=== PATIENT | female | born 1960 | race African-American/Black ===

== ENCOUNTER 2016-11-26 09:52 | Emergency (ER) | payer MEDICARE, MEDICAID ==
--- NOTE | 2016-11-26 11:05 | ER Document Report ---
ED General - General Chief Complaint: Feet Swelling Stated Complaint: FOOT SWELLING Mode of Arrival: Medic Information source: Patient Notes: 56 yro ld female presents with complaints of right leg edema of over 2 week duration. pt notes symptoms are much better in the last 48 hours , notes swelling and pain have resolved greatly. denies any fevers or chills. denies any hx of diabetes or dvt TRAVEL OUTSIDE OF THE [place] IN LAST 30 DAYS: No - HPI Onset: Other Onset/Duration: Persistent, Better Quality of pain: No pain Severity: Mild Pain Level: Denies Associated symptoms: None Exacerbated by: Denies Relieved by: Denies Similar symptoms previously: No Recently seen / treated by doctor: No - Related Data Allergies/Adverse Reactions: No Known Allergies Allergy (Verified 11/19/14 13:15) Past Medical History - Social History Smoking Status: Never Smoker Cigarette use (# per day): No Chew tobacco use (# tins/day): No Smoking Education Provided: No Family History: Reviewed & Not Pertinent, DM Psychiatric Medical History: Reports: Hx Anxiety, Hx Bipolar Disorder, Hx Schizophrenia - Immunizations Hx Diphtheria, Pertussis, Tetanus Vaccination: Yes Review of Systems - Review of Systems Notes: REVIEW OF SYSTEMS: CONSTITUTIONAL : Denies fever, chills, or sweats. Denies recent illness. EENT: Denies eye, ear, throat, or mouth pain or symptoms. Denies nasal or sinus congestion or discharge. Denies throat, tongue, or mouth swelling or difficulty swallowing. CARDIOVASCULAR: Denies chest pain. Denies palpitations or racing or irregular heart beat. Denies ankle edema. RESPIRATORY: Denies cough, cold, or chest congestion. Denies shortness of breath, difficulty breathing, or wheezing. GASTROINTESTINAL: Denies abdominal pain or distention. Denies nausea, vomiting , or diarrhea. Denies blood in vomitus, stools, or per rectum. Denies black, tarry stools. Denies constipation. GENITOURINARY: chart notes urinary complaint, pt denies FEMALE GENITOURINARY: Denies vaginal bleeding, heavy or abnormal periods, irregular periods. Denies vaginal discharge or odor. MUSCULOSKELETAL: right lowere extremity edema SKIN: Denies rash, lesions or sores. HEMATOLOGIC : Denies easy bruising or bleeding. LYMPHATIC: Denies swollen, enlarged glands. NEUROLOGICAL: Denies confusion or altered mental status. Denies passing out or loss of consciousness. Denies dizziness or lightheadedness. Denies headache. Denies weakness or paralysis or loss of use of either side. Denies problems with gait or speech. Denies sensory loss, numbness, or tingling. Denies seizures. PSYCHIATRIC: Denies anxiety or stress. Denies depression, suicidal ideation, or homicidal ideation. ALL OTHER SYSTEMS REVIEWED AND NEGATIVE. Dictation was performed using to be voice recognition software PHYSICAL EXAMINATION: GENERAL: Well-appearing, well-nourished and in no acute distress. HEAD: Atraumatic, normocephalic. EYES: Pupils equal round and reactive to light, left eye diplopia ENT: Nares patent, oropharynx clear without exudates. Moist mucous membranes. NECK: Normal range of motion, supple without lymphadenopathy LUNGS: Breath sounds clear to auscultation bilaterally and equal. No wheezes rales or rhonchi. HEART: Regular rate and rhythm without murmurs ABDOMEN: Soft, nontender, nondistended abdomen. No guarding, no rebound. No masses appreciated. Female : deferred Musculoskeletal: right lower extremity edema +2 with weeping at the feet NEUROLOGICAL: Cranial nerves grossly intact. Normal speech, normal gait. Normal sensory, motor exams PSYCH: Normal mood, normal affect. SKIN: Warm, Dry, normal turgor, no rashes or lesions noted. Physical Exam - Vital signs Vitals: Temp Pulse BP Pulse Ox 97.6 F 72 134/84 H 98 11/26/16 10:31 11/26/16 10:31 11/26/16 10:31 11/26/16 10:31 Course - Re-evaluation Re-evalutation: 11/26/16 11:04 There is obvious concerns for DVT given the amount of edema, but foot is warm and probably cellulitic 11/26/16 12:01 Urinalysis notes no sign of infection, patient will be treated with antibiotics as Doppler After performing a Medical Screening Examination, I estimate there is LOW risk for OPEN FRACTURE, COMPARTMENT SYNDROME, TENDON RUPTURE, ACUTE NEUROVASCULAR INJURY, or RETAINED FOREIGN BODY, thus I consider the discharge disposition reasonable. Also, there is no evidence or peritonitis, sepsis, or toxicity. The patient and I have discussed the diagnosis and risks, and we agree with discharging home with close follow-up with the understanding that symptoms and presentations can change. We also discussed returning to the Emergency Department immediately if new or worsening symptoms occur. We have discussed the symptoms which are most concerning (e.g., changing or worsening pain, fever , numbness, weakness, cool or painful digits) that necessitate immediate return. - Vital Signs Vital signs: Temp Pulse Resp BP Pulse Ox 97.6 F 72 134/84 H 98 11/26/16 10:31 11/26/16 10:31 11/26/16 10:31 11/26/16 10:31 - Laboratory Result Diagrams: 11/26/16 10:50 11/26/16 10:50 Laboratory results interpreted by me: 11/26/16 10:50 RDW 15.5 H - Diagnostic Test Radiology reviewed: Image reviewed, Reports reviewed Discharge - Discharge Clinical Impression: Cellulitis of right foot, Edema of right lower extremity Condition: Stable Disposition: HOME, SELF-CARE Instructions: Cellulitis ([facility]) Prescriptions: Clindamycin HCl 300 mg PO Q6 #40 capsule Referrals: Wound Care [Provider Group] - Follow up in 3-5 days
[2016-11-26 11:13] LABS: ABSOLUTE BASOPHILS # (AUTO) 0.1 10^3/uL (0.0-0.2); ABSOLUTE EOSINOPHILS # (AUTO) 0.2 10^3/uL (0.0-0.6); ABSOLUTE LYMPHOCYTES (AUTO) 3.8 10^3/uL (0.5-4.7); ABSOLUTE MONOCYTES (AUTO) 1.2 10^3/uL (0.1-1.4); ABSOLUTE NEUT (AUTO) 3.8 10^3/uL (1.7-8.2); BASOPHILS % (AUTO) 0.6 % (0-2); EOSINOPHILS % (AUTO) 2.7 % (0-6); HEMATOCRIT 37.9 % (36.0-47.0); HEMOGLOBIN 12.3 g/dL (12.0-15.5); LYMPHOCYTES % (AUTO) 41.8 % (13-45); MEAN CORPUSCULAR HGB CONC 32.3 g/dL (32.0-36.0); MEAN CORPUSCULAR VOLUME 90 fl (80-97); MONOCYTES % (AUTO) 12.8 % (3-13); RED BLOOD COUNT 4.22 10^6/uL (3.72-5.28); RED CELL DISTRIBUTION WIDTH 15.5 % (11.5-14.0); SEGMENTED NEUTROPHILS % (AUTO) 42.1 % (42-78); WHITE BLOOD COUNT 9.1 10^3/uL (4.0-10.5)
[2016-11-26] MEDS ORDERED: CLINDAMYCIN HCL 150 MG CAPSULE PO ONE (11:21)
[2016-11-26 11:28] LABS: ALANINE AMINOTRANSFERASE 19 U/L (9-52); ALBUMIN 3.6 g/dL (3.5-5.0); ALKALINE PHOSPHATASE 72 U/L (38-126); ANION GAP 10 (5-19); ASPARTATE AMINO TRANSFERASE 20 U/L (14-36); BILIRUBIN,TOTAL 0.4 mg/dL (0.2-1.3); BLOOD UREA NITROGEN 14 mg/dL (7-20); CALCIUM 9.4 mg/dL (8.4-10.2); CARBON DIOXIDE 28 mmol/L (22-30); CHLORIDE 105 mmol/L (98-107); CREATININE RESULT 0.65 mg/dL (0.52-1.25); GLUCOSE 79 mg/dL (75-110); POTASSIUM 4.8 mmol/L (3.6-5.0); SODIUM 142.5 mmol/L (137-145); TOTAL PROTEIN 7.5 g/dL (6.3-8.2)
[2016-11-26 11:44] LABS: APPEARANCE,URINE CLEAR; BILIRUBIN,URINE NEGATIVE (NEGATIVE); GLUCOSE, URINE NEGATIVE (NEGATIVE); KETONES,URINE NEGATIVE (NEGATIVE); LEUKOCYTE ESTERASE,URINE NEGATIVE (NEGATIVE); NITRITE,URINE NEGATIVE (NEGATIVE); PROTEIN,URINE NEGATIVE (NEGATIVE); URINE SPECIFIC GRAVITY 1.013; UROBILINOGEN,URINE NEGATIVE mg/dL (<2.0)
[2016-11-26 12:59] VITALS: BP 141/82
== END 2016-11-26 12:32 | disposition home or self-care (01) ==
LOC: ER 09:52
DX: L03.115 Cellulitis of right lower limb (principal); M79.89 Other specified soft tissue disorders
CPT/HCPCS: 99284; 36415; 85025; 80053; 81001; 93971; A9270

== ENCOUNTER 2017-07-07 09:02 | Emergency (ER) | payer MEDICARE, MEDICAID ==
[2017-07-07] MEDS ORDERED: CLINDAMYCIN 600 MG/D5W RTU 600 MG/50 ML RTUPB IV ONE (09:27)
[2017-07-07 09:45] LABS: ABSOLUTE EOSINOPHILS # (AUTO) 0.2 10^3/uL (0.0-0.6); ABSOLUTE LYMPHOCYTES (AUTO) 2.8 10^3/uL (0.5-4.7); ABSOLUTE MONOCYTES (AUTO) 1.2 10^3/uL (0.1-1.4); ABSOLUTE NEUT (AUTO) 5.6 10^3/uL (1.7-8.2); BASOPHILS % (AUTO) 0.4 % (0-2); EOSINOPHILS % (AUTO) 2.2 % (0-6); HEMATOCRIT 38.3 % (36.0-47.0); HEMOGLOBIN 12.8 g/dL (12.0-15.5); HGB HCT DIFFERENCE 0.1; LYMPHOCYTES % (AUTO) 28.5 % (13-45); MEAN CORPUSCULAR HEMOGLOBIN 29.9 pg (27.0-33.4); MEAN CORPUSCULAR HGB CONC 33.4 g/dL (32.0-36.0); MEAN CORPUSCULAR VOLUME 90 fl (80-97); MONOCYTES % (AUTO) 11.8 % (3-13); RED BLOOD COUNT 4.28 10^6/uL (3.72-5.28); RED CELL DISTRIBUTION WIDTH 15.1 % (11.5-14.0); SEGMENTED NEUTROPHILS % (AUTO) 57.1 % (42-78); WHITE BLOOD COUNT 9.8 10^3/uL (4.0-10.5)
[2017-07-07 10:05] LABS: ALANINE AMINOTRANSFERASE 21 U/L (9-52); ALBUMIN 3.9 g/dL (3.5-5.0); ALKALINE PHOSPHATASE 83 U/L (38-126); ANION GAP 12 (5-19); ASPARTATE AMINO TRANSFERASE 23 U/L (14-36); BILIRUBIN,DIRECT 0.6 mg/dL (0.0-0.4); BILIRUBIN,TOTAL 0.6 mg/dL (0.2-1.3); BLOOD UREA NITROGEN 10 mg/dL (7-20); CALCIUM 9.7 mg/dL (8.4-10.2); CARBON DIOXIDE 28 mmol/L (22-30); CHLORIDE 102 mmol/L (98-107); CREATININE RESULT 0.66 mg/dL (0.52-1.25); GLUCOSE 153 mg/dL (75-110); POTASSIUM 3.8 mmol/L (3.6-5.0); SODIUM 141.6 mmol/L (137-145); TOTAL PROTEIN 7.9 g/dL (6.3-8.2)
--- NOTE | 2017-07-07 10:32 | ER Document Report ---
ED Skin Rash/Insect Bite/Abscs - General Chief Complaint: Skin Problem Stated Complaint: FOOT PAIN Time Seen by Provider: 07/07/17 09:10 Mode of Arrival: Medic Information source: Patient, Outside Facility Records Notes: Pt is a 57 year old bipolar schizophrenic who presents to the ER today for 3 days of right lower leg and foot swelling, redness, drainage from foot and pain. She states she is walking on it just fine but it hurts to touch. She has a history of cellulitis of both lower extremities, but no diabetes. She denies injury or CHF. TRAVEL OUTSIDE OF THE [place] IN LAST 30 DAYS: No - Related Data Allergies/Adverse Reactions: No Known Allergies Allergy (Verified 11/19/14 13:15) Past Medical History - General Information source: Patient - Social History Smoking Status: Unknown if Ever Smoked Frequency of alcohol use: None Drug Abuse: None Family History: Reviewed & Not Pertinent, DM Psychiatric Medical History: Reports: Hx Anxiety, Hx Bipolar Disorder, Hx Schizophrenia - Immunizations Hx Diphtheria, Pertussis, Tetanus Vaccination: Yes Review of Systems - Review of Systems Constitutional: No symptoms reported EENT: No symptoms reported Cardiovascular: No symptoms reported Respiratory: No symptoms reported Gastrointestinal: No symptoms reported Genitourinary: No symptoms reported Female Genitourinary: No symptoms reported Musculoskeletal: No symptoms reported Skin: See HPI Hematologic/Lymphatic: No symptoms reported Neurological/Psychological: No symptoms reported Physical Exam - Vital signs Vitals: Temp Pulse Resp BP Pulse Ox 98.1 F 97 16 136/86 H 100 07/07/17 09:17 07/07/17 09:17 07/07/17 09:17 07/07/17 09:17 07/07/17 09:17 - Notes Notes: PHYSICAL EXAMINATION: GENERAL: Chronically ill-appearing, but in no acute distress. HEAD: Atraumatic, normocephalic. EYES: Pupils equal round and reactive to light, extraocular movements intact, sclera anicteric, conjunctiva are normal. NECK: Normal range of motion, supple without lymphadenopathy LUNGS: CTAB and equal. No wheezes rales or rhonchi. HEART: Regular rate and rhythm without murmurs EXTREMITIES: Normal range of motion, No cyanosis. NEUROLOGICAL: Cranial nerves grossly intact. Normal sensory/motor exams. PSYCH: Normal mood, normal affect. SKIN: Warm, Dry, normal turgor, erythema and edema to right lower extremity, tender to palpation, 1+ pitting, weeping from right foot in between toes Course - Re-evaluation Re-evalutation: 07/07/17 11:13 WBC normal here, pt afebrile, normal vital signs and unremarkable labwork. Pt has been treated in the past with oral clindamycin for exact same thing and states it "usually works." Will send her home with clindamycin this time and have recheck in 3 days. - Vital Signs Vital signs: Temp Pulse Resp BP Pulse Ox 97.5 F 76 16 114/69 96 07/07/17 10:45 07/07/17 10:45 07/07/17 10:45 07/07/17 10:45 07/07/17 10:45 - Laboratory Result Diagrams: 07/07/17 09:30 07/07/17 09:30 Laboratory results interpreted by me: 07/07/17 07/07/17 09:30 09:30 RDW 15.1 H Glucose 153 H Direct Bilirubin 0.6 H Discharge - Discharge Clinical Impression: Cellulitis of right foot, Cellulitis of right leg Condition: Stable Disposition: HOME-SNF (ED ONLY) Additional Instructions: come back in 3 days to have cellulitis rechecked. Return immediately for any new or worsening symptoms. Follow up with primary care provider, call tomorrow to make followup appointment. Prescriptions: Clindamycin HCl 300 mg PO TID #30 capsule
[2017-07-07 10:46] VITALS: BP 114/69
== END 2017-07-07 12:00 ==
LOC: ER 09:02
DX: L03.115 Cellulitis of right lower limb (principal)
CPT/HCPCS: 36415; 80053; 85025; 87040; 96365; 99284

== ENCOUNTER 2017-07-12 15:14 | Emergency (ER) | payer MEDICARE, MEDICAID ==
--- NOTE | 2017-07-12 15:49 | ER Document Report ---
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 Patient was sent in by the [employer] [facility] physician for IV antibiotics and possible failure of outpatient therapy of antibiotics. She was seen here on Friday and then reevaluate again yesterday in the ED by the same provider who no significant improvement, the patient herself states that it has improved tremendously and that she does not know why they sent her in. She denies any fevers or chills denies any pain TRAVEL OUTSIDE OF THE [place] IN LAST 30 DAYS: No - HPI Onset: Last week Onset/Duration: Persistent, Better Quality of pain: No pain Severity: Moderate Pain Level: Denies Associated symptoms: Other Exacerbated by: Denies Relieved by: Denies Similar symptoms previously: Yes Recently seen / treated by doctor: Yes - Related Data Allergies/Adverse Reactions: No Known Allergies Allergy (Verified 07/11/17 16:29) Past Medical History - Social History Smoking Status: Never Smoker Cigarette use (# per day): No Chew tobacco use (# tins/day): No Smoking Education Provided: No Frequency of alcohol use: None Drug Abuse: None Family History: Reviewed & Not Pertinent, DM Renal/ Medical History: Denies: Hx Peritoneal Dialysis Psychiatric Medical History: Reports: Hx Anxiety, Hx Bipolar Disorder, Hx Schizophrenia Surgical Hx: Negative - Immunizations Hx Diphtheria, Pertussis, Tetanus Vaccination: Yes Review of Systems - Review of Systems Notes: REVIEW OF SYSTEMS: CONSTITUTIONAL : Denies fever, chills, or sweats. Denies recent illness. EENT: Denies eye, ear, throat, or mouth pain or symptoms. Denies nasal or sinus congestion or discharge. Denies throat, tongue, or mouth swelling or difficulty swallowing. CARDIOVASCULAR: right lower extremity edema RESPIRATORY: Denies cough, cold, or chest congestion. Denies shortness of breath, difficulty breathing, or wheezing. GASTROINTESTINAL: Denies abdominal pain or distention. Denies nausea, vomiting , or diarrhea. Denies blood in vomitus, stools, or per rectum. Denies black, tarry stools. Denies constipation. GENITOURINARY: Denies difficulty urinating, painful urination, burning, frequency, blood in urine, or discharge. FEMALE GENITOURINARY: Denies vaginal bleeding, heavy or abnormal periods, irregular periods. Denies vaginal discharge or odor. MUSCULOSKELETAL: Denies back or neck pain or stiffness. Denies joint pain or swelling. SKIN: skin sloughing HEMATOLOGIC : Denies easy bruising or bleeding. LYMPHATIC: Denies swollen, enlarged glands. NEUROLOGICAL: Denies confusion or altered mental status. Denies passing out or loss of consciousness. Denies dizziness or lightheadedness. Denies headache. Denies weakness or paralysis or loss of use of either side. Denies problems with gait or speech. Denies sensory loss, numbness, or tingling. Denies seizures. PSYCHIATRIC: Denies anxiety or stress. Denies depression, suicidal ideation, or homicidal ideation. ALL OTHER SYSTEMS REVIEWED AND NEGATIVE. PHYSICAL EXAMINATION: GENERAL: Well-appearing, well-nourished and in no acute distress. HEAD: Atraumatic, normocephalic. EYES: Pupils equal round and reactive to light, extraocular movements intact, conjunctiva are normal. ENT: Nares patent, oropharynx clear without exudates. Moist mucous membranes. NECK: Normal range of motion, supple without lymphadenopathy LUNGS: Breath sounds clear to auscultation bilaterally and equal. No wheezes rales or rhonchi. HEART: Regular rate and rhythm without murmurs ABDOMEN: Soft, nontender, nondistended abdomen. No guarding, no rebound. No masses appreciated. Female : deferred Musculoskeletal: Normal range of motion, no pitting or edema. No cyanosis. NEUROLOGICAL: Cranial nerves grossly intact. Normal speech, normal gait. Normal sensory, motor exams PSYCH: Normal mood, normal affect. SKIN: sloughing of skin between 1st and 2nd digits +2 pitting edema of the right ankle to foot Dictation was performed using [employer] voice recognition software Physical Exam - Vital signs Vitals: Temp Pulse Resp BP Pulse Ox 97.8 F 96 18 124/80 96 07/12/17 15:18 07/12/17 15:18 07/12/17 15:18 07/12/17 15:18 07/12/17 15:18 Course - Re-evaluation Re-evalutation: 07/12/17 16:05 area was looked at by the nurse that saw patient yesterday and notes it looks similar 07/12/17 20:29 CBC notes no significant infectious process, given that the nurse agrees with the patient that the symptoms have improved significantly and she is afebrile with no white count I do not believe admission is appropriate at this time, I did give her a dose of IV antibiotics in the emergency department will discharge her back to care facility for further evaluation and care Patient is alert oriented 4 is very specific regarding her previous presentations to the ED After performing a Medical Screening Examination, I estimate there is LOW risk for OPEN FRACTURE, COMPARTMENT SYNDROME, TENDON RUPTURE, ACUTE NEUROVASCULAR INJURY, or RETAINED FOREIGN BODY, thus I consider the discharge disposition reasonable. Also, there is no evidence or peritonitis, sepsis, or toxicity. I have reevaluated this patient multiple times and no significant life threatening changes are noted. The patient and I have discussed the diagnosis and risks, and we agree with discharging home with close follow-up with the understanding that symptoms and presentations can change. We also discussed returning to the Emergency Department immediately if new or worsening symptoms occur. We have discussed the symptoms which are most concerning (e.g., changing or worsening pain, fever, numbness, weakness, cool or painful digits) that necessitate immediate return. - Vital Signs Vital signs: Temp Pulse Resp BP Pulse Ox 98 F 88 16 135/81 H 98 07/12/17 19:59 07/12/17 19:59 07/12/17 19:59 07/12/17 19:59 07/12/17 19:59 - Laboratory Result Diagrams: 07/12/17 17:18 07/12/17 17:18 Laboratory results interpreted by me: 07/12/17 17:18 RDW 15.3 H Discharge - Discharge Clinical Impression: Cellulitis of left foot Foot ulcer, left Qualifiers: Non-pressure ulcer stage: limited to breakdown of skin Qualified Code(s): L97.521 - Non-pressure chronic ulcer of other part of left foot limited to breakdown of skin Condition: Stable Disposition: HOME, SELF-CARE Additional Instructions: Please continue plan provided to you yesterday return immediately if there is any worsening symptoms or any other concerns Referrals: LUZ DE LUNA MD [Primary Care Provider] - Follow up tomorrow
[2017-07-12] MEDS ORDERED: CLINDAMYCIN 300 MG/D5W RTU 300 MG/50 ML RTUPB IV ONE (16:01)
[2017-07-12 17:42] LABS: ABSOLUTE BASOPHILS # (AUTO) 0.1 10^3/uL (0.0-0.2); ABSOLUTE EOSINOPHILS # (AUTO) 0.2 10^3/uL (0.0-0.6); ABSOLUTE LYMPHOCYTES (AUTO) 3.5 10^3/uL (0.5-4.7); ABSOLUTE MONOCYTES (AUTO) 1.1 10^3/uL (0.1-1.4); ABSOLUTE NEUT (AUTO) 5.7 10^3/uL (1.7-8.2); BASOPHILS % (AUTO) 0.7 % (0-2); EOSINOPHILS % (AUTO) 1.6 % (0-6); HEMATOCRIT 41.6 % (36.0-47.0); HEMOGLOBIN 13.7 g/dL (12.0-15.5); HGB HCT DIFFERENCE -0.5; MEAN CORPUSCULAR HEMOGLOBIN 29.8 pg (27.0-33.4); MEAN CORPUSCULAR HGB CONC 32.9 g/dL (32.0-36.0); MEAN CORPUSCULAR VOLUME 91 fl (80-97); MONOCYTES % (AUTO) 10.5 % (3-13); RED CELL DISTRIBUTION WIDTH 15.3 % (11.5-14.0); SEGMENTED NEUTROPHILS % (AUTO) 54.2 % (42-78); WHITE BLOOD COUNT 10.5 10^3/uL (4.0-10.5)
[2017-07-12 20:01] VITALS: BP 135/81
== END 2017-07-12 20:02 | disposition home or self-care (01) ==
LOC: ER 15:14
DX: L03.116 Cellulitis of left lower limb (principal); L97.521 Non-pressure chronic ulcer of other part of left foot limited to breakdown of skin
CPT/HCPCS: 99284; 96365; 36415; 87040; 85025; J3490

== ENCOUNTER 2017-07-16 16:54 | Emergency (ER) | payer MEDICARE, MEDICAID ==
[2017-07-16] MEDS ORDERED: VANCOMYCIN HCL INJ 1000 MG VIAL IV ONE (17:23)
--- NOTE | 2017-07-16 17:24 | ER Document Report ---
ED Medical Screen (RME) - General Chief Complaint: Wound Recheck Stated Complaint: CELLULITIS RIGHT LEG Time Seen by Provider: 07/16/17 17:23 Notes: Patient presents from [facility]. She states that she has some right leg pain from a chronic wound. She states she has been undergoing oral antibiotic therapy and has an appointment next week at wound care. TRAVEL OUTSIDE OF THE [place] IN LAST 30 DAYS: No - Related Data Allergies/Adverse Reactions: No Known Allergies Allergy (Verified 07/11/17 16:29) Past Medical History - Social History Frequency of alcohol use: None Drug Abuse: None Renal/ Medical History: Denies: Hx Peritoneal Dialysis Psychiatric Medical History: Reports: Hx Anxiety, Hx Bipolar Disorder, Hx Schizophrenia - Immunizations Hx Diphtheria, Pertussis, Tetanus Vaccination: Yes Physical Exam - Vital signs Vitals: Temp Pulse Resp BP Pulse Ox 97.5 F 87 18 112/60 100 07/16/17 17:10 07/16/17 17:10 07/16/17 17:10 07/16/17 17:10 07/16/17 17:10 Course - Vital Signs Vital signs: Temp Pulse Resp BP Pulse Ox 97.5 F 87 18 112/60 100 07/16/17 17:10 07/16/17 17:10 07/16/17 17:10 07/16/17 17:10 07/16/17 17:10
[2017-07-16 18:25] LABS: ABSOLUTE EOSINOPHILS # (AUTO) 0.3 10^3/uL (0.0-0.6); ABSOLUTE MONOCYTES (AUTO) 0.9 10^3/uL (0.1-1.4); ABSOLUTE NEUT (AUTO) 5.5 10^3/uL (1.7-8.2); BASOPHILS % (AUTO) 0.3 % (0-2); EOSINOPHILS % (AUTO) 2.6 % (0-6); HEMATOCRIT 39.9 % (36.0-47.0); HEMOGLOBIN 13.1 g/dL (12.0-15.5); HGB HCT DIFFERENCE -0.6; LYMPHOCYTES % (AUTO) 31.5 % (13-45); MEAN CORPUSCULAR HEMOGLOBIN 29.2 pg (27.0-33.4); MEAN CORPUSCULAR HGB CONC 32.7 g/dL (32.0-36.0); MEAN CORPUSCULAR VOLUME 90 fl (80-97); MONOCYTES % (AUTO) 8.9 % (3-13); RED BLOOD COUNT 4.46 10^6/uL (3.72-5.28); RED CELL DISTRIBUTION WIDTH 15.2 % (11.5-14.0); SEGMENTED NEUTROPHILS % (AUTO) 56.7 % (42-78); WHITE BLOOD COUNT 9.7 10^3/uL (4.0-10.5)
[2017-07-16 18:39] LABS: ALANINE AMINOTRANSFERASE 26 U/L (9-52); ALKALINE PHOSPHATASE 82 U/L (38-126); ANION GAP 12 (5-19); ASPARTATE AMINO TRANSFERASE 21 U/L (14-36); BILIRUBIN,DIRECT 0.4 mg/dL (0.0-0.4); BILIRUBIN,TOTAL 0.4 mg/dL (0.2-1.3); BLOOD UREA NITROGEN 11 mg/dL (7-20); CALCIUM 9.8 mg/dL (8.4-10.2); CARBON DIOXIDE 29 mmol/L (22-30); CHLORIDE 103 mmol/L (98-107); GLUCOSE 106 mg/dL (75-110); POTASSIUM 4.1 mmol/L (3.6-5.0); SODIUM 143.8 mmol/L (137-145); TOTAL PROTEIN 8.1 g/dL (6.3-8.2)
--- NOTE | 2017-07-16 18:57 | ER Document Report ---
ED General - General Chief Complaint: Wound Recheck Stated Complaint: CELLULITIS RIGHT LEG Time Seen by Provider: 07/16/17 17:23 Notes: Patient is a 57-year-old male currently lives in [facility], has a history of bipolar disorder, schizophrenia, who presents with right lower extremity swelling, rash and pain. She has been seen twice previously in this emergency department for this concern and was placed on clindamycin. She states that this has improved her rash and pain but apparently the facility was concerned that it has actually worsened. Is adamant that it is improved and denies any pain to the area at this time other states earlier it was a dull, constant burning pain. She states that the pain can still sometimes be triggered when she walks. She does not take anything to control the pain. She denies any fever or constitutional symptoms. TRAVEL OUTSIDE OF THE [place] IN LAST 30 DAYS: No - Related Data Allergies/Adverse Reactions: No Known Allergies Allergy (Verified 07/11/17 16:29) Past Medical History - General Information source: Patient - Social History Smoking Status: Current Every Day Smoker Frequency of alcohol use: None Drug Abuse: None Lives with: Retirement Family History: Reviewed & Not Pertinent, DM Renal/ Medical History: Denies: Hx Peritoneal Dialysis Psychiatric Medical History: Reports: Hx Anxiety, Hx Bipolar Disorder, Hx Schizophrenia - Immunizations Hx Diphtheria, Pertussis, Tetanus Vaccination: Yes Review of Systems - Review of Systems Notes: Constitutional: Negative for fever. HENT: Negative for sore throat. Eyes: Negative for visual changes. Cardiovascular: Negative for chest pain. Respiratory: Negative for shortness of breath. Gastrointestinal: Negative for abdominal pain, vomiting or diarrhea. Genitourinary: Negative for dysuria. Musculoskeletal: Negative for back pain. Skin: Positive for rash. Neurological: Negative for headaches, weakness or numbness. 10 point ROS negative except as marked above and in HPI. Physical Exam - Vital signs Vitals: Temp Pulse Resp BP Pulse Ox 97.5 F 87 18 112/60 100 07/16/17 17:10 07/16/17 17:10 07/16/17 17:10 07/16/17 17:10 07/16/17 17:10 Interpretation: Normal Notes: PHYSICAL EXAMINATION: GENERAL: Well-appearing, well-nourished and in no acute distress. HEAD: Atraumatic, normocephalic. EYES: Pupils equal round and reactive to light, extraocular movements intact, sclera anicteric, conjunctiva are normal. ENT: nares patent, oropharynx clear without exudates. Moist mucous membranes. NECK: Normal range of motion, supple without lymphadenopathy LUNGS: Breath sounds clear to auscultation bilaterally and equal. No wheezes rales or rhonchi. HEART: Regular rate and rhythm without murmurs ABDOMEN: Soft, nontender, normoactive bowel sounds. No guarding, no rebound. No masses appreciated. EXTREMITIES: 2+ pitting edema in the in the right lower extremity. There is weeping edema to the area. There are multiple areas of soft tissue avulsion and a small amount of purulent drainage over these areas over the distal tibial surface and the dorsum of the right foot NEUROLOGICAL: No focal neurological deficits. Moves all extremities spontaneously and on command. PSYCH: Normal mood, normal affect. SKIN: Warm, Dry, normal turgor, no rashes or lesions noted. Course - Re-evaluation Re-evalutation: 07/16/17 18:58 Patient presents with right lower extremity edema and weeping. She has multiple areas of skin avulsion concerning for a possible sinusitis with associated purulent component and she is only on clindamycin at this time which is now provide a quite quite average for immediate MRSA. Alternative concerns do include DVT with associated edema weeping as the etiology of her presentation. Will obtain a venous ultrasound and if this is normal plan for discharge home with broadening of her antibiotics. 07/16/17 21:10 Venous Doppler is normal. Apparently the referring physician was concerned about a possible gas gangrene. There is absolutely no evidence of this on exam and patient is extremely well in appearance with [place] no vital sign abnormalities or leukocytosis. She herself states that the area actually appears much improved since she was started on antibiotics. However, given referring physicians concern I will broaden her antibiotics to TMP-SMX and Keflex and discontinue clindamycin. - Vital Signs Vital signs: Temp Pulse Resp BP Pulse Ox 97.4 F 75 17 140/79 H 100 07/16/17 22:24 07/16/17 22:24 07/16/17 22:24 07/16/17 22:24 07/16/17 22:24 - Laboratory Result Diagrams: 07/16/17 18:03 07/16/17 18:03 Laboratory results interpreted by me: 07/16/17 18:03 RDW 15.2 H Discharge - Discharge Clinical Impression: Leg edema, right, Cellulitis of leg, right Condition: Good Disposition: HOME, SELF-CARE Additional Instructions: The patient's laboratories and vitals are normal. She does not require hospitalization. Her venous ultrasound is normal does not show any evidence of a clot in the leg. Her antibiotics have been changed from clindamycin to TMP- SMX and cephalexin which she will take daily for the next 10 days. If she develops a fever, becomes lethargic, has vital sign abnormalities or any additional concerns you may refer her back to the emergency department. Prescriptions: Cephalexin Monohydrate [Keflex 500 mg Capsule] 500 mg PO QID #40 capsule Sulfamethoxazole/Trimethoprim [Bactrim Ds Tablet] 1 each PO BID #20 tablet Referrals: LUZ DE LUNA MD [Primary Care Provider] - Follow up as needed
--- NOTE | 2017-07-16 21:35 | RADIOLOGY REPORT (SQ) ---
EXAM DESCRIPTION: VENOUS UNILATERAL LOWER COMPLETED DATE/TIME: 07/16/2017 9:25 pm REASON FOR STUDY: eval rle edema, dvt COMPARISON: 11/26/2016 TECHNIQUE: Dynamic and static mcnally scale and color images acquired of the right leg venous system. S elected spectral images acquired with additional compression and augmentation maneuvers. The contrala teral common femoral vein and saphenofemoral junction were also imaged. Images stored on PACS. LIMITATIONS: None. FINDINGS: COMMON FEMORAL: Normal phasicity, compression and augmentation. No visualized echogenic ma terial on mcnally scale. No defects on color images. FEMORAL: Normal compression and augmentation. No visualized echogenic material on mcnally scale. No defe cts on color images. POPLITEAL: Normal compression, augmentation. No visualized echogenic material on mcnally scale. No defec ts on color images. CALF VESSELS: Normal compression, augmentation. No visualized echogenic material on mcnally scale. No de fects on color images. GSV and SSV: Normal compression, augmentation. No visualized echogenic material on mcnally scale. No def ects on color images. ANY DEEP VENOUS INSUFFICIENCY: Not evaluated. ANY EVIDENCE OF POPLITEAL CYST: No. OTHER: No other significant finding. CONTRALATERAL COMMON FEMORAL VEIN AND SAPHENOFEMORAL JUNCTION: Normal phasicity, compression and augmentation. No visualized echogenic material on mcnally scale. No de fects on color images. IMPRESSION: NO EVIDENCE DVT OR SVT IN THE RIGHT LEG. TECHNICAL DOCUMENTATION: JOB ID: [id number] [employer]- All Rights Reserved
[2017-07-16 22:33] VITALS: BP 140/79
== END 2017-07-16 23:35 | disposition home or self-care (01) ==
LOC: ER 16:54
DX: R60.0 Localized edema (principal); L03.115 Cellulitis of right lower limb; F17.200 Nicotine dependence, unspecified, uncomplicated
CPT/HCPCS: 36415; 80053; 85025; 93971; 99282

== ENCOUNTER → 2017-07-29 | Outpatient (CLI) | payer MEDICARE, MEDICAID ==
--- NOTE | 2017-07-29 16:40 | XCELERA REPORT ---
[address] [address] Lower Extremity Arterial Evaluation Name: JACK DILLARD Age: 57 yrs Gender: Female : 1960 Patient Status: Outpatient Patient Location: Study Date: 07/29/2017 02:48 PM Procedure: A color flow and duplex scan of the lower extremity arteries was performed bilaterally with velocity and waveform anaylsis. Ankle brachial indicies performed. Reason For Study: ULCER Ordering Physician: MICHAEL STEVENS Performed By: Jamila Gross Measurements and Calculations Right Left LEGAL FILE CLERK PSV 162.6 115.7 cm/sec Prox PFA PSV 85.6 -71.6 cm/sec Prox SFA PSV 153.4 116.9 cm/sec Mid SFA PSV -162.2 -118.8 cm/sec Dist SFA PSV -132.6 -85.1 cm/sec Prox Pop A PSV 140.2 78.6 cm/sec Dist ARLETTE PSV 90.8 66.0 cm/sec Dist EMS INSTRUCTOR PSV 116.3 96.5 cm/sec Andrew Pedis PSV 114.9 79.8 cm/sec Right Side Arterial Evaluation Normal velocity and triphasic waveforms noted from the Common Femoral artery to the infregeniculate vessels. 0 % stenosis noted . Ankle Brachial index is 1.17. Left Side Arterial Evaluation Normal velocity and triphasic waveforms noted from the Common Femoral artery to the infregeniculate vessels. 0 % stenosis noted . Ankle Brachial index is 1.15. Interpretation Summary No hemodynamically significant lesions in the bilateral lower extremities, on duplex imaging, at rest. : MICHAEL STEVENS > Reji Carrillo
== END ==
LOC: SP 14:22
PROVIDERS: ATTEND Nurse Practitioner Family
DX: L97.512 Non-pressure chronic ulcer of other part of right foot with fat layer exposed (principal)
CPT/HCPCS: 93925

== ENCOUNTER 2017-08-09 13:53 | Emergency (ER) | payer MEDICARE, MEDICAID ==
--- NOTE | 2017-08-09 14:12 | ER Document Report ---
ED Medical Screen (RME) - General Chief Complaint: Skin Problem Stated Complaint: LEFT FOOT PAIN Time Seen by Provider: 08/09/17 14:03 Mode of Arrival: Wheelchair Information source: Patient TRAVEL OUTSIDE OF THE [place] IN LAST 30 DAYS: No - HPI Patient complains to provider of: Right foot infection Notes: 08/09/17 14:10 Patient is a 57-year-old female with a history of schizophrenia who resides at [facility], she presents to the emergency room today complaining of worsening infection to the right foot, patient states that she was told the foot has cellulitis, however she believes that when she sleeps at night serpents come in and bite her foot and inject venom into to it, because that is with the spirit told her, this spirit also told her that she should unwrap the foot and expose it to sun yesterday which she did, and she reports that it continues to have drainage which is odorous, apparently home health nurse has been following her and evaluated the foot today stating that it was much worse - Related Data Allergies/Adverse Reactions: No Known Allergies Allergy (Verified 07/11/17 16:29) Past Medical History Renal/ Medical History: Denies: Hx Peritoneal Dialysis Psychiatric Medical History: Reports: Hx Anxiety, Hx Bipolar Disorder, Hx Schizophrenia - Immunizations Hx Diphtheria, Pertussis, Tetanus Vaccination: Yes Physical Exam - Vital signs Vitals: Temp Pulse Resp BP Pulse Ox 97.8 F 82 16 113/85 98 08/09/17 13:58 08/09/17 13:58 08/09/17 13:58 08/09/17 13:58 08/09/17 13:58 Course - Vital Signs Vital signs: Temp Pulse Resp BP Pulse Ox 97.8 F 82 16 113/85 98 08/09/17 13:58 08/09/17 13:58 08/09/17 13:58 08/09/17 13:58 08/09/17 13:58
[2017-08-09 15:14] LABS: ABSOLUTE EOSINOPHILS # (AUTO) 0.5 10^3/uL (0.0-0.6); ABSOLUTE LYMPHOCYTES (AUTO) 3.1 10^3/uL (0.5-4.7); ABSOLUTE MONOCYTES (AUTO) 0.9 10^3/uL (0.1-1.4); ABSOLUTE NEUT (AUTO) 3.9 10^3/uL (1.7-8.2); BASOPHILS % (AUTO) 0.4 % (0-2); HEMATOCRIT 37.3 % (36.0-47.0); HEMOGLOBIN 12.5 g/dL (12.0-15.5); HGB HCT DIFFERENCE 0.2; LYMPHOCYTES % (AUTO) 36.8 % (13-45); MEAN CORPUSCULAR HEMOGLOBIN 29.9 pg (27.0-33.4); MEAN CORPUSCULAR HGB CONC 33.6 g/dL (32.0-36.0); MEAN CORPUSCULAR VOLUME 89 fl (80-97); RED BLOOD COUNT 4.18 10^6/uL (3.72-5.28); RED CELL DISTRIBUTION WIDTH 15.9 % (11.5-14.0); SEGMENTED NEUTROPHILS % (AUTO) 45.8 % (42-78); WHITE BLOOD COUNT 8.4 10^3/uL (4.0-10.5)
[2017-08-09 15:23] LABS: ALANINE AMINOTRANSFERASE 19 U/L (9-52); ALBUMIN 4.1 g/dL (3.5-5.0); ALKALINE PHOSPHATASE 82 U/L (38-126); ANION GAP 9 (5-19); ASPARTATE AMINO TRANSFERASE 23 U/L (14-36); BILIRUBIN,DIRECT 0.4 mg/dL (0.0-0.4); BILIRUBIN,TOTAL 0.4 mg/dL (0.2-1.3); BLOOD UREA NITROGEN 13 mg/dL (7-20); CALCIUM 9.9 mg/dL (8.4-10.2); CARBON DIOXIDE 30 mmol/L (22-30); CHLORIDE 106 mmol/L (98-107); CREATININE RESULT 0.71 mg/dL (0.52-1.25); GLUCOSE 96 mg/dL (75-110); POTASSIUM 4.5 mmol/L (3.6-5.0); SODIUM 145.2 mmol/L (137-145); TOTAL PROTEIN 8.4 g/dL (6.3-8.2)
--- NOTE | 2017-08-09 15:24 | RADIOLOGY REPORT (SQ) ---
EXAM DESCRIPTION: FOOT RIGHT COMPLETE COMPLETED DATE/TIME: 08/09/2017 3:14 pm REASON FOR STUDY: infection COMPARISON: 06/04/2011 NUMBER OF VIEWS: Three views. TECHNIQUE: AP, lateral and oblique radiographic images acquired of the right foot. LIMITATIONS: None. FINDINGS: MINERALIZATION: Normal. BONES: No acute fracture or dislocation. No worrisome bone lesions. JOINTS: No effusions. SOFT TISSUES: Diffuse swelling. No foreign body. OTHER: No other significant finding. IMPRESSION: No evidence of osteomyelitis. TECHNICAL DOCUMENTATION: JOB ID: [id number] [employer]- All Rights Reserved
--- NOTE | 2017-08-09 15:40 | ER Document Report ---
ED General - General Chief Complaint: Skin Problem Stated Complaint: LEFT FOOT PAIN Time Seen by Provider: 08/09/17 14:03 Mode of Arrival: Wheelchair Information source: Patient Notes: Patient presents to emergency department with complaints of right foot cellulitis. Patient reports she has had this on and off for a while. Her wound care nurse saw her today and thought she needed recently again. She reports this was a new nurse. She reports the foot looks better. She denies pain. She reports snakes have been biting her foot at night so that is why her foot has been bothering her. Denies f/n/v/d. Reports next wound care appointment is Friday. TRAVEL OUTSIDE OF THE [place] IN LAST 30 DAYS: No - HPI Onset: Other Onset/Duration: Better Quality of pain: No pain Severity: None Pain Level: Denies Associated symptoms: None Exacerbated by: Denies Relieved by: Denies Similar symptoms previously: Yes Recently seen / treated by doctor: Yes - Related Data Allergies/Adverse Reactions: No Known Allergies Allergy (Verified 07/11/17 16:29) Past Medical History - General Information source: Patient - Social History Smoking Status: Unknown if Ever Smoked Cigarette use (# per day): No Chew tobacco use (# tins/day): No Frequency of alcohol use: None Drug Abuse: None Lives with: Other - [facility] Family History: Reviewed & Not Pertinent, DM Renal/ Medical History: Denies: Hx Peritoneal Dialysis Psychiatric Medical History: Reports: Hx Anxiety, Hx Bipolar Disorder, Hx Schizophrenia Surgical Hx: Negative - Immunizations Hx Diphtheria, Pertussis, Tetanus Vaccination: Yes Physical Exam - Vital signs Vitals: Temp Pulse Resp BP Pulse Ox 97.8 F 82 16 113/85 98 08/09/17 13:58 08/09/17 13:58 08/09/17 13:58 08/09/17 13:58 08/09/17 13:58 - Notes Notes: PHYSICAL EXAMINATION: GENERAL: Well-appearing and in no acute distress nontoxic looking HEAD: Atraumatic, normocephalic. EYES: extraocular movements intact, sclera anicteric, conjunctiva are normal. ENT: nares patent, . Moist mucous membranes. NECK: Normal range of motion, supple without lymphadenopathy LUNGS: CTAB and equal. No wheezes rales or rhonchi. HEART: Regular rate and rhythm without murmurs ABDOMEN: Soft, no tenderness. No guarding, no rebound EXTREMITIES: Normal range of motion, no cyanosis. right foot with skin sloughing inbetween digits 1/2, 2/3, +cap refill, good pedal pulse, no warmth, no drainage, denies pain, no obvious odor NEUROLOGICAL: Cranial nerves grossly intact. Normal sensory/motor exams. PSYCH: calm SKIN: Warm, Dry, normal turgor, no rashes or lesions noted Course - Re-evaluation Re-evalutation: 08/09/17 15:39 No osteomyelitis labs unremarkable, dressing removed excoriated skin noted, will clean foot, place bacitracin, replace dressing and instruct patient follow- up with wound care on Friday. She verbalized understanding 08/09/17 15:[address] Estevez because he had seen patient before. Dr. Estevez in to assess patient reports that the foot looks better. Patient to be discharged home - Vital Signs Vital signs: Temp Pulse Resp BP Pulse Ox 97.8 F 82 16 113/85 98 08/09/17 13:58 08/09/17 13:58 08/09/17 13:58 08/09/17 13:58 08/09/17 13:58 - Laboratory Result Diagrams: 08/09/17 15:00 08/09/17 15:00 Laboratory results interpreted by me: 08/09/17 08/09/17 15:00 15:00 RDW 15.9 H Sodium 145.2 H Total Protein 8.4 H - Diagnostic Test Radiology reviewed: Image reviewed, Reports reviewed - no osteomylitis Discharge - Discharge Clinical Impression: Cellulitis of right foot Condition: Stable Disposition: HOME, SELF-CARE Instructions: Cellulitis ([facility]) Additional Instructions: *You have been evaluated for right foot cellulitis *Monitor your temperature, take tylenol as indicated *Keep foot clean, dressed, follow up with wound care as scheduled this Friday. *Take medication as prescribed *Return to ED for worsening condition, changes, needs, pain Referrals: LUZ DE LUNA MD [Primary Care Provider] - Follow up in 3-5 days
[2017-08-09 17:00] VITALS: BP 135/71
== END 2017-08-09 16:48 | disposition home or self-care (01) ==
LOC: ER 13:53
DX: L03.115 Cellulitis of right lower limb (principal); M79.672 Pain in left foot
CPT/HCPCS: 36415; 80053; 85025; 87040; 99284

== ENCOUNTER 2018-06-04 12:18 | Inpatient (IN) | payer MEDICARE, MEDICAID ==
--- NOTE | 2018-06-04 12:43 | ER Document Report ---
ED Medical Screen (RME) - General Chief Complaint: Foot Pain Stated Complaint: FOOT PAIN Time Seen by Provider: 06/04/18 12:38 Notes: 58 years old female presents today with right foot wound swelling some pain as well as swelling of the right lower extremity. Going on for the last few days to weeks. No fever chills or other constitutional symptoms Has a psychiatric history, she claims people are messing up with foot during the nighttime when she sleeps. TRAVEL OUTSIDE OF THE [place] IN LAST 30 DAYS: No - Related Data Allergies/Adverse Reactions: No Known Allergies Allergy (Verified 06/04/18 12:18) Past Medical History Renal/ Medical History: Denies: Hx Peritoneal Dialysis Psychiatric Medical History: Reports: Hx Anxiety, Hx Bipolar Disorder, Hx Schizophrenia - Immunizations Hx Diphtheria, Pertussis, Tetanus Vaccination: Yes Physical Exam - Vital signs Vitals: Temp Pulse Resp BP 97.7 F 75 20 108/67 06/04/18 12:23 06/04/18 12:23 06/04/18 12:23 06/04/18 12:23 Course - Vital Signs Vital signs: Temp Pulse Resp BP Pulse Ox 97.7 F 75 20 108/67 06/04/18 12:23 06/04/18 12:23 06/04/18 12:23 06/04/18 12:23
[2018-06-04 13:55] LABS: ABSOLUTE EOSINOPHILS # (AUTO) 0.1 10^3/uL (0.0-0.6); ABSOLUTE MONOCYTES (AUTO) 0.9 10^3/uL (0.1-1.4); ABSOLUTE NEUT (AUTO) 5.1 10^3/uL (1.7-8.2); BASOPHILS % (AUTO) 0.5 % (0-2); EOSINOPHILS % (AUTO) 1.3 % (0-6); HEMATOCRIT 35.3 % (36.0-47.0); HEMOGLOBIN 11.7 g/dL (12.0-15.5); LYMPHOCYTES % (AUTO) 32.5 % (13-45); MEAN CORPUSCULAR HEMOGLOBIN 29.2 pg (27.0-33.4); MEAN CORPUSCULAR HGB CONC 33.1 g/dL (32.0-36.0); MEAN CORPUSCULAR VOLUME 88 fl (80-97); MONOCYTES % (AUTO) 9.6 % (3-13); PLATELET COUNT 275 10^3/uL (150-450); RED CELL DISTRIBUTION WIDTH 14.4 % (11.5-14.0); SEGMENTED NEUTROPHILS % (AUTO) 56.1 % (42-78); TOTAL CELLS COUNTED % (AUTO) 100 %; WHITE BLOOD COUNT 9.1 10^3/uL (4.0-10.5)
[2018-06-04 14:10] LABS: INTERNATIONAL RATION (INR) 0.91; PROTHROMBIN TIME 12.7 SEC (11.4-15.4)
[2018-06-04 14:11] LABS: ALANINE AMINOTRANSFERASE 18 U/L (9-52); ALBUMIN 4.1 g/dL (3.5-5.0); ALKALINE PHOSPHATASE 65 U/L (38-126); ANION GAP 12 (5-19); ASPARTATE AMINO TRANSFERASE 17 U/L (14-36); BILIRUBIN,DIRECT 0.3 mg/dL (0.0-0.4); BILIRUBIN,TOTAL 0.4 mg/dL (0.2-1.3); BLOOD UREA NITROGEN 10 mg/dL (7-20); CALCIUM 9.7 mg/dL (8.4-10.2); CARBON DIOXIDE 30 mmol/L (22-30); CHLORIDE 105 mmol/L (98-107); GLUCOSE 82 mg/dL (75-110); POTASSIUM 4.2 mmol/L (3.6-5.0); SODIUM 147.2 mmol/L (137-145); TOTAL PROTEIN 8.1 g/dL (6.3-8.2)
[2018-06-04] MEDS ORDERED: VANCOMYCIN HCL INJ 1000 MG VIAL IV ONE (14:31)
--- NOTE | 2018-06-04 15:00 | ER Document Report ---
ED Extremity Problem, Lower - General Chief Complaint: Foot Pain Stated Complaint: FOOT PAIN Time Seen by Provider: 06/04/18 12:38 Information source: Patient Notes: Patient is a 58-year-old female that presents today with some right pain and foot swelling for around 5 days. She denies any fevers or vomiting. Patient has been treated and hospitalized 2 for cellulitis in the past. Patient lives at the [facility] secondary to schizophrenia. Patient and mom deny any diabetes. Patient denies any chest pain or shortness of breath. TRAVEL OUTSIDE OF THE [place] IN LAST 30 DAYS: No - HPI Patient complains to provider of: Pain, Swelling Location: Foot Occurred: Other - See above Where: Home Onset/Duration: Sudden Severity: Moderate Pain Level: 2 Context: Other - See above Recent injury: No Associated symptoms: Other - See above Exacerbated by: Movement Relieved by: Nothing - Related Data Allergies/Adverse Reactions: No Known Allergies Allergy (Verified 06/04/18 12:18) Past Medical History - General Information source: Patient - Social History Smoking Status: Current Every Day Smoker Cigarette use (# per day): No Chew tobacco use (# tins/day): No Smoking Education Provided: No Frequency of alcohol use: Rare Drug Abuse: None Family History: Reviewed & Not Pertinent, DM Patient has suicidal ideation: No Patient has homicidal ideation: No Renal/ Medical History: Denies: Hx Peritoneal Dialysis Psychiatric Medical History: Reports: Hx Anxiety, Hx Bipolar Disorder, Hx Schizophrenia - Immunizations Hx Diphtheria, Pertussis, Tetanus Vaccination: Yes Review of Systems - Review of Systems Constitutional: denies: Fever Cardiovascular: denies: Chest pain, Palpitations Respiratory: denies: Short of breath Gastrointestinal: denies: Vomiting Genitourinary: denies: Dysuria Musculoskeletal: denies: Leg swelling Neurological/Psychological: Other - no slurred speech -: Yes All other systems reviewed and negative Physical Exam - Vital signs Vitals: Temp Pulse Resp BP 97.7 F 75 20 108/67 06/04/18 12:23 06/04/18 12:23 06/04/18 12:23 06/04/18 12:23 Interpretation: Normal Notes: Reviewed vital signs and nursing note as charted by RN. CONSTITUTIONAL: Alert and oriented and responds appropriately to questions. Well -appearing; well-nourished HEAD: Normocephalic; atraumatic CARD: Regular rate and rhythm; no murmurs, no clicks, no rubs, no gallops; symmetric distal pulses RESP: Normal chest excursion without splinting or tachypnea; breath sounds clear and equal bilaterally ABD/GI: Normal bowel sounds; non-distended; soft, non-tender BACK: The back appears normal and is non-tender to palpation EXT: Patient has right foot and lower extremity swelling and erythema to the dorsal aspect of the foot. Strong dorsalis pedis pulses. Able to move her toes. Sensation is intact light touch SKIN: No acute lesions noted NEURO: Moves all extremities equally; Motor and sensory function intact PSYCH: The patient's mood and manner are appropriate. Grooming and personal hygiene are appropriate. Course - Re-evaluation Re-evalutation: 06/04/18 14:59 Given the above history and physical examination, Doppler ultrasound was ordered to evaluate for DVT which was negative. We have ordered basic labs as well as blood cultures. I am concerned about a possible cellulitis of the foot. I will order an x-ray to evaluate for any obvious osteomyelitis. I have ordered vancomycin anticipate admission. - Vital Signs Vital signs: Temp Pulse Resp BP Pulse Ox 97.7 F 75 20 108/67 06/04/18 12:23 06/04/18 12:23 06/04/18 12:23 06/04/18 12:23 - Laboratory Result Diagrams: 06/04/18 13:25 06/04/18 13:25 Laboratory results interpreted by me: 06/04/18 06/04/18 13:25 13:25 Hgb 11.7 L Hct 35.3 L RDW 14.4 H Sodium 147.2 H Discharge - Discharge Clinical Impression: Cellulitis of right foot Condition: Fair Disposition: ADMITTED OBSERVATION Admitting Provider: Hospitalist Unit Admitted: Medical Floor
--- NOTE | 2018-06-04 15:12 | RADIOLOGY REPORT (SQ) ---
EXAM DESCRIPTION: FOOT RIGHT COMPLETE COMPLETED DATE/TIME: 06/04/2018 3:01 pm REASON FOR STUDY: 38, pain COMPARISON: 08/09/2017. NUMBER OF VIEWS: Three views. TECHNIQUE: AP, lateral and oblique without weight bearing radiographic images acquired of the right foot. LIMITATIONS: None. FINDINGS: MINERALIZATION: Normal. BONES: No acute fracture or dislocation. No worrisome bone lesions. No significant osteophytes. JOINTS: No erosions. No cherelle-articular osteopenia. No chondrocalcinosis. SOFT TISSUES: Diffuse soft tissue swelling. No calcifications. OTHER: No other significant finding. IMPRESSION: DIFFUSE SOFT TISSUE SWELLING. NO SIGNIFICANT BONY FINDINGS. TECHNICAL DOCUMENTATION: JOB ID: [id number] [employer]- All Rights Reserved Reading location - IP/workstation name: [email or web address]
--- NOTE | 2018-06-04 15:24 | RADIOLOGY REPORT (SQ) ---
EXAM DESCRIPTION: VENOUS UNILATERAL LOWER COMPLETED DATE/TIME: 06/04/2018 3:12 pm REASON FOR STUDY: Rule out right calf DVT COMPARISON: 07/16/2017. TECHNIQUE: Dynamic and static mcnally scale and color images acquired of the right leg venous system. S elected spectral images acquired with additional compression and augmentation maneuvers. The contrala teral common femoral vein and saphenofemoral junction were also imaged. Images stored on PACS. LIMITATIONS: None. FINDINGS: COMMON FEMORAL: Normal phasicity, compression and augmentation. No visualized echogenic ma terial on mcnally scale. No defects on color images. FEMORAL: Normal compression and augmentation. No visualized echogenic material on mcnally scale. No defe cts on color images. POPLITEAL: Normal compression, augmentation. No visualized echogenic material on mcnally scale. No defec ts on color images. CALF VESSELS: Normal compression, augmentation. No visualized echogenic material on mcnally scale. No de fects on color images. GSV and SSV: Normal compression, augmentation. No visualized echogenic material on mcnally scale. No def ects on color images. ANY DEEP VENOUS INSUFFICIENCY: No. ANY EVIDENCE OF POPLITEAL CYST: No. OTHER: No other significant finding. CONTRALATERAL COMMON FEMORAL VEIN AND SAPHENOFEMORAL JUNCTION: Normal phasicity, compression and augmentation. No visualized echogenic material on mcnally scale. No de fects on color images. IMPRESSION: NO EVIDENCE DVT OR SVT IN THE RIGHT LEG. TECHNICAL DOCUMENTATION: JOB ID: [id number] [employer]- All Rights Reserved Reading location - IP/workstation name: [email or web address]
[2018-06-04] MEDS ORDERED: VANCOMYCIN HCL 0 MG in DEXTROSE 5%-WATER 250 ML IV NR (16:15)
--- NOTE | 2018-06-04 16:45 | PDOC H&P ---
History of Present Illness Admission Date/PCP: 06/04/18 15:17 Patient complains of: R FOOT SWELLING AND PAIN History of Present Illness: JACK DILLARD is a 58 year old female resident of [facility]. She presents with a 6 day history of erythema and edema to the right foot. Patient has a history of cellulitis in the RLE, previously hospitalized multiple times. Patient states that she woke up on Friday morning and noticed swelling and redness to her right foot. Over the course of the last couple days her symptoms have become progressively worse. Today, the patient is unable to ambulate on her right foot due to pain, which prompted the medical staff at [facility] to send her to the emergency department. PMH includes HTN and Schizoaffective disorder Patient presented to the emergency department with stable vital signs BP 108/67 HR 75 T 97.7 RR 20 SPO2 100%. Lab work is benign, no evidence of leukocytosis. The patient endorses pain to the right foot, states she is unable to ambulate today due to pain. The patient denies fever chills. She states that her recurrent cellulitis is the result of a wound she developed on the dorsal surface her R foot "years ago". Upon assessment, the patient's R foot is erythematous with +2 pitting edema. Mild edema also present in the right ankle , no evidence of erythema or streaking. DP and PT pulses are dopplerable, unable to palpate. Full flexion and extension of the right ankle, but patient endorses pain with movement. Admit to hospitalist service for IV antibiotic treatment of her cellulitis. Past Medical History Cardiac Medical History: Reports: Hypertension Psychiatric Medical History: Reports: Bipolar Disorder, Schizoaffective Disorder Past Surgical History Past Surgical History: Reports: None Social History Information Source: Patient Lives with: Group Home Smoking Status: Current Every Day Smoker Cigarettes Packs Per Day: 0.2 Number of Years Smokin Frequency of Alcohol Use: None Hx Recreational Drug Use: No Drugs: None Hx Prescription Drug Abuse: No - Advance Directive Resuscitation Status: Full Code Family History Family History: Reviewed & Not Pertinent, DM Parental Family History Reviewed: Yes Children Family History Reviewed: Yes Sibling(s) Family History Reviewed.: Yes Medication/Allergy Home Medications: Invega Sustenna 234 mg IM Q30D 07/09/14 Benztropine Mesylate 0.5 mg PO TID #90 tablet 11/22/14 Clonazepam [Klonopin] 0.5 mg PO QHS PRN #30 tablet 11/22/14 Docusate Sodium [Colace 100 mg Capsule] 100 mg PO BID #60 capsule 11/22/14 Olanzapine [Zyprexa] 15 mg PO QHS #30 tablet 11/22/14 Sulfamethoxazole/Trimethoprim [Bactrim Ds Tablet] 1 each PO BID #20 tablet 11/22 Thiamine HCl [Thiamine 100 mg Tablet] 100 mg PO DAILY #30 tablet 11/22/14 Clindamycin HCl 300 mg PO QID #28 capsule 05/07/16 Clindamycin HCl 300 mg PO Q6 #40 capsule 11/26/16 Clindamycin HCl 300 mg PO TID #30 capsule 07/07/17 Cephalexin Monohydrate [Keflex 500 mg Capsule] 500 mg PO QID #40 capsule Sulfamethoxazole/Trimethoprim [Bactrim Ds Tablet] 1 each PO BID #20 tablet 07/16 Allergies/Adverse Reactions: No Known Allergies Allergy (Verified 06/04/18 12:18) Review of Systems All systems: reviewed and no additional remarkable complaints except as stated Physical Exam Vital Signs: Temp Pulse Resp BP Pulse Ox 97.7 F 75 20 108/67 06/04/18 12:23 06/04/18 12:23 06/04/18 12:23 06/04/18 12:23 General appearance: PRESENT: no acute distress Eye exam: PRESENT: conjunctiva pink, PERRLA Mouth exam: PRESENT: moist Teeth exam: PRESENT: poor dentation Neck exam: PRESENT: full ROM Respiratory exam: PRESENT: clear to auscultation julio cesar, symmetrical, unlabored Cardiovascular exam: PRESENT: +S1, +S2 Pulses: PRESENT: normal radial pulses. ABSENT: normal dorsalis pedis pul - DOPPLER DP AND PT PULSES IN R FOOT GI/Abdominal exam: PRESENT: normal bowel sounds, soft. ABSENT: tenderness Rectal exam: PRESENT: deferred Extremities exam: PRESENT: full ROM, pedal edema - R FOOT Musculoskeletal exam: ABSENT: ambulatory - NORMALLY ABLE TO AMBULATE. UNABLE TO AMBULATE SECONDARY TO R FOOT PAIN Neurological exam: PRESENT: alert, awake, oriented to person, oriented to place , oriented to time, oriented to situation Psychiatric exam: PRESENT: appropriate affect Skin exam: PRESENT: dry, intact, warm Results Impressions: Venous Doppler Study 06/04/18 12:41 IMPRESSION: NO EVIDENCE DVT OR SVT IN THE RIGHT LEG. Foot X-Ray 06/04/18 14:31 IMPRESSION: DIFFUSE SOFT TISSUE SWELLING. NO SIGNIFICANT BONY FINDINGS. Status: Imported from PACS Assessment & Plan - Diagnosis (1) Cellulitis of right foot Is this a current diagnosis for this admission?: Yes Plan: Recurrent cellulitis of the R foot Erythema and edema to R foot and ankle Afebrile and no leukocytosis History of pseudomonas and MRSA in R foot wound Initiate Vancomycin and Cefepime (2) HTN (hypertension) Qualifiers: Hypertension type: essential hypertension Qualified Code(s): I10 - Essential (primary) hypertension Is this a current diagnosis for this admission?: Yes Plan: History of HTN Resume home medications when medication reconciliation is complete (3) Schizoaffective disorder, bipolar type Is this a current diagnosis for this admission?: Yes Plan: History of Schizoaffective disorder Resume home medications once medication reconciliation is complete - Time Time Spent: 30 to 50 Minutes Smoking Cessation Education: 3 to 10 minutes Medications reviewed and adjusted accordingly: Yes Anticipated discharge: SNF - Inpatient Certification Based on my medical assessment, after consideration of the patient's comorbidities, presenting symptoms, or acuity I expect that the services needed warrant INPATIENT care.: Yes I certify that my determination is in accordance with my understanding of Medicare's requirements for reasonable and necessary INPATIENT services [42 CFR 412.3e].: Yes Medical Necessity: Need for IV Antibiotics - Plan Summary Plan Summary: ADMIT TO HOSPITALIST SERVICE FOR IV ANTIBIOTICS FOR RECURRENT CELLULITIS.
[2018-06-04] MEDS ORDERED: CEFEPIME 2 GM/D5W RTU 2 GM/50 ML RTUPB IV SCH (18:00)
[2018-06-04] MEDS ORDERED: OXYCODONE-ACETAMINOPHEN 5-325 MG TABLET PO PRN (19:22)
[2018-06-04] MEDS: MORPHINE SULFATE 10 MG/ML INJ IV PRN (19:49)
[2018-06-04] MEDS: SILVER SULFADIAZINE 1% CREAM 400 GM TP SCH (21:04)
[2018-06-04] MEDS: CEFEPIME 2 GM/D5W RTU 2 GM/50 ML RTUPB IV SCH (22:01)
[2018-06-05 05:02] LABS: HEMATOCRIT 34.7 % (36.0-47.0); HEMOGLOBIN 11.6 g/dL (12.0-15.5); MEAN CORPUSCULAR HEMOGLOBIN 29.4 pg (27.0-33.4); MEAN CORPUSCULAR HGB CONC 33.4 g/dL (32.0-36.0); MEAN CORPUSCULAR VOLUME 88 fl (80-97); PLATELET COUNT 252 10^3/uL (150-450); RED BLOOD COUNT 3.94 10^6/uL (3.72-5.28); RED CELL DISTRIBUTION WIDTH 14.7 % (11.5-14.0)
[2018-06-05 05:28] LABS: ALANINE AMINOTRANSFERASE 17 U/L (9-52); ALBUMIN 3.4 g/dL (3.5-5.0); ALKALINE PHOSPHATASE 54 U/L (38-126); ANION GAP 9 (5-19); ASPARTATE AMINO TRANSFERASE 12 U/L (14-36); BILIRUBIN,DIRECT 0.3 mg/dL (0.0-0.4); BILIRUBIN,TOTAL 0.3 mg/dL (0.2-1.3); BLOOD UREA NITROGEN 13 mg/dL (7-20); CALCIUM 9.1 mg/dL (8.4-10.2); CARBON DIOXIDE 29 mmol/L (22-30); CHLORIDE 108 mmol/L (98-107); GLUCOSE 82 mg/dL (75-110); POTASSIUM 4.2 mmol/L (3.6-5.0); SODIUM 146.4 mmol/L (137-145); TOTAL PROTEIN 6.9 g/dL (6.3-8.2)
[2018-06-05] MEDS ORDERED: VANCOMYCIN HCL INJ 1000 MG VIAL ONE (06:03)
[2018-06-05] MEDS ORDERED: VANCOMYCIN HCL INJ 500 MG VIAL ONE (06:03)
[2018-06-05] MEDS: VANCOMYCIN HCL 1,250 MG in DEXTROSE 5%-WATER 250 ML IV SCH ×2 (06:10→21:29)
[2018-06-05] MEDS: MORPHINE SULFATE 10 MG/ML INJ IV PRN ×3 (08:53→17:09)
[2018-06-05] MEDS: SILVER SULFADIAZINE 1% CREAM 400 GM TP SCH ×2 (12:03→21:28)
[2018-06-05] MEDS: ENOXAPARIN SODIUM INJ 30 MG/0.3 ML DISP.SYRIN SUBCUT SCH (12:04)
[2018-06-05] MEDS: CEFEPIME 2 GM/D5W RTU 2 GM/50 ML RTUPB IV SCH ×2 (12:05→21:30)
--- NOTE | 2018-06-05 17:48 | PDOC PROGRESS REPORT ---
Subjective Progress Note for:: 06/05/18 Subjective:: 58 y.o. F with PMH HTN and schizoaffective disorder admitted to [facility] for cellulitis of the RLE. Patient is seen this morning on rounds, she is out of bed to her bedside recliner. The patient is awake, alert and oriented 3. She is able to answer all questions appropriately. She appears to be in good spirits. She denies pain to her RLE. States she is able to ambulate from the bed to the bedside recliner without difficulty. The patient denies fever, chills, nausea, vomiting or diarrhea. Continue current treatment plan, awaiting arterial doppler. Reason For Visit: CELLULITIS Physical Exam Vital Signs: Temp Pulse Resp BP Pulse Ox 98.6 F 63 16 94/61 L 96 06/05/18 07:51 06/05/18 07:51 06/05/18 07:51 06/05/18 07:51 06/05/18 07:51 Intake & Output 06/04/18 06/05/18 06/06/18 06:59 06:59 06:59 Intake Total 50 437 Balance 50 437 Weight 92.8 kg General appearance: PRESENT: no acute distress, obese Eye exam: PRESENT: conjunctiva pink, PERRLA Mouth exam: PRESENT: moist Teeth exam: PRESENT: poor dentation Neck exam: PRESENT: full ROM Respiratory exam: PRESENT: clear to auscultation julio cesar, symmetrical, unlabored Cardiovascular exam: PRESENT: +S1 Pulses: PRESENT: normal radial pulses. ABSENT: normal dorsalis pedis pul - doppler DP and PT pulses in R foot Vascular exam: PRESENT: normal capillary refill GI/Abdominal exam: PRESENT: soft. ABSENT: tenderness Rectal exam: PRESENT: deferred Extremities exam: PRESENT: full ROM, pedal edema - R foot Musculoskeletal exam: PRESENT: ambulatory, full ROM Neurological exam: PRESENT: alert, awake, oriented to person, oriented to place , oriented to time, oriented to situation Psychiatric exam: PRESENT: appropriate affect Skin exam: PRESENT: dry, erythema - R FOOT ONLY, intact, warm. ABSENT: normal color - WOMAN WITH SPLOTCHY PINK SKIN COLORING TO R FOOT Results Laboratory Results: 06/05/18 04:35 06/05/18 04:35 06/05/18 06/05/18 04:35 04:35 WBC 8.0 RBC 3.94 Hgb 11.6 L Hct 34.7 L MCV 88 MCH 29.4 MCHC 33.4 RDW 14.7 H Plt Count 252 Sodium 146.4 H Potassium 4.2 Chloride 108 H Carbon Dioxide 29 Anion Gap 9 BUN 13 Creatinine 0.68 Est GFR ( Amer) > 60 Est GFR (Non-Af Amer) > 60 Glucose 82 Calcium 9.1 Total Bilirubin 0.3 AST 12 L ALT 17 Alkaline Phosphatase 54 Total Protein 6.9 Albumin 3.4 L Impressions: Venous Doppler Study 06/04/18 12:41 IMPRESSION: NO EVIDENCE DVT OR SVT IN THE RIGHT LEG. Foot X-Ray 06/04/18 14:31 IMPRESSION: DIFFUSE SOFT TISSUE SWELLING. NO SIGNIFICANT BONY FINDINGS. Status: Imported from PACS Assessment & Plan - Diagnosis (1) Cellulitis of right foot Is this a current diagnosis for this admission?: Yes Plan: Recurrent cellulitis of the R foot Erythema and edema to R foot and ankle Venous doppler (-) negative for DVT Awaiting arterial doppler of RLE Afebrile and no leukocytosis History of pseudomonas and MRSA in R foot wound Continue Vancomycin and Cefepime (2) HTN (hypertension) Qualifiers: Hypertension type: essential hypertension Qualified Code(s): I10 - Essential (primary) hypertension Is this a current diagnosis for this admission?: Yes Plan: History of HTN Resume home medications (3) Schizoaffective disorder, bipolar type Is this a current diagnosis for this admission?: Yes Plan: History of Schizoaffective disorder Resume home medications - Time Time Spent with patient: 15-24 minutes Medications reviewed and adjusted accordingly: Yes Anticipated discharge: Home - Inpatient Certification Based on my medical assessment, after consideration of the patient's comorbidities, presenting symptoms, or acuity I expect that the services needed warrant INPATIENT care.: Yes I certify that my determination is in accordance with my understanding of Medicare's requirements for reasonable and necessary INPATIENT services [42 CFR 412.3e].: Yes Medical Necessity: Need for IV Antibiotics - Plan Summary Plan Summary: AWAITING ARTERIAL DOPPLER
[2018-06-06] MEDS: VANCOMYCIN HCL 1,250 MG in DEXTROSE 5%-WATER 250 ML IV SCH (06:42)
[2018-06-06 07:00] LABS: HEMATOCRIT 34.6 % (36.0-47.0); HEMOGLOBIN 11.4 g/dL (12.0-15.5); MEAN CORPUSCULAR VOLUME 88 fl (80-97); PLATELET COUNT 270 10^3/uL (150-450); RED BLOOD COUNT 3.94 10^6/uL (3.72-5.28); RED CELL DISTRIBUTION WIDTH 14.7 % (11.5-14.0); WHITE BLOOD COUNT 8.8 10^3/uL (4.0-10.5)
[2018-06-06 07:28] LABS: ALANINE AMINOTRANSFERASE 13 U/L (9-52); ALBUMIN 3.5 g/dL (3.5-5.0); ALKALINE PHOSPHATASE 59 U/L (38-126); ANION GAP 10 (5-19); ASPARTATE AMINO TRANSFERASE 14 U/L (14-36); BILIRUBIN,DIRECT 0.3 mg/dL (0.0-0.4); BILIRUBIN,TOTAL 0.3 mg/dL (0.2-1.3); BLOOD UREA NITROGEN 14 mg/dL (7-20); CALCIUM 9.4 mg/dL (8.4-10.2); CARBON DIOXIDE 29 mmol/L (22-30); CHLORIDE 106 mmol/L (98-107); GLUCOSE 91 mg/dL (75-110); POTASSIUM 4.6 mmol/L (3.6-5.0); SODIUM 144.7 mmol/L (137-145); TOTAL PROTEIN 7.3 g/dL (6.3-8.2)
[2018-06-06 07:32] LABS: VANCOMYCIN,TROUGH 15.7 ug/mL (5.0-20.0)
[2018-06-06] MEDS: MORPHINE SULFATE 10 MG/ML INJ IV PRN ×3 (08:55→18:00)
[2018-06-06] MEDS: CEFEPIME 2 GM/D5W RTU 2 GM/50 ML RTUPB IV SCH (11:09)
[2018-06-06] MEDS: SILVER SULFADIAZINE 1% CREAM 400 GM TP SCH (11:12)
[2018-06-06] MEDS: ENOXAPARIN SODIUM INJ 30 MG/0.3 ML DISP.SYRIN SUBCUT SCH (11:12)
--- NOTE | 2018-06-06 16:58 | PDOC PROGRESS REPORT ---
Subjective Progress Note for:: 06/06/18 Subjective:: 58 y.o. F with PMH HTN and schizoaffective disorder admitted to [facility] for cellulitis of the RLE. Patient is seen this morning on rounds, she is out of bed to her bedside recliner. The patient is awake, alert and oriented 3. She is able to answer all questions appropriately. She appears to be in good spirits. She denies pain to her RLE. States she is able to ambulate from the bed to the bedside recliner without difficulty. The patient denies fever, chills, nausea, vomiting or diarrhea. The patient's foot remains erathematous, her edema has decreased slightly but she still has pitting edema to her foot and ankle. Continue current treatment plan, awaiting arterial doppler. Reason For Visit: CELLULITIS Physical Exam Vital Signs: Temp Pulse Resp BP Pulse Ox 98.1 F 71 16 130/82 H 100 06/06/18 14:58 06/06/18 14:58 06/06/18 14:58 06/06/18 14:58 06/06/18 14:58 Intake & Output 06/05/18 06/06/18 06/07/18 06:59 06:59 06:59 Intake Total 50 1412 787 Balance 50 1412 787 Weight 92.8 kg 93.8 kg General appearance: PRESENT: no acute distress, obese Eye exam: PRESENT: conjunctiva pink Mouth exam: PRESENT: neck supple Teeth exam: PRESENT: poor dentation Neck exam: PRESENT: full ROM Respiratory exam: PRESENT: clear to auscultation julio cesar, symmetrical, unlabored Cardiovascular exam: PRESENT: +S1, +S2 Pulses: PRESENT: normal radial pulses, +1 pedal pulses bilateral - faint DP and PT pulses Vascular exam: PRESENT: normal capillary refill GI/Abdominal exam: PRESENT: soft. ABSENT: tenderness Rectal exam: PRESENT: deferred Extremities exam: PRESENT: full ROM, pedal edema - R foot Musculoskeletal exam: PRESENT: ambulatory - with assistance, full ROM Neurological exam: PRESENT: alert, awake, oriented to person, oriented to place , oriented to time, oriented to situation Psychiatric exam: PRESENT: appropriate affect Skin exam: PRESENT: dry, erythema - r foot, intact, warm Results Laboratory Results: 06/06/18 06:46 06/06/18 06:46 06/06/18 06/06/18 06:46 06:46 WBC 8.8 RBC 3.94 Hgb 11.4 L Hct 34.6 L MCV 88 MCH 29.0 MCHC 33.0 RDW 14.7 H Plt Count 270 Sodium 144.7 Potassium 4.6 Chloride 106 Carbon Dioxide 29 Anion Gap 10 BUN 14 Creatinine 0.67 Est GFR ( Amer) > 60 Est GFR (Non-Af Amer) > 60 Glucose 91 Calcium 9.4 Total Bilirubin 0.3 AST 14 ALT 13 Alkaline Phosphatase 59 Total Protein 7.3 Albumin 3.5 Impressions: Venous Doppler Study 06/04/18 12:41 IMPRESSION: NO EVIDENCE DVT OR SVT IN THE RIGHT LEG. Foot X-Ray 06/04/18 14:31 IMPRESSION: DIFFUSE SOFT TISSUE SWELLING. NO SIGNIFICANT BONY FINDINGS. Status: Imported from PACS Assessment & Plan - Diagnosis (1) Cellulitis of right foot Is this a current diagnosis for this admission?: Yes Plan: Recurrent cellulitis of the R foot Erythema and edema to R foot and ankle Venous doppler (-) negative for DVT Awaiting arterial doppler of RLE Afebrile and no leukocytosis History of pseudomonas and MRSA in R foot wound Continue Vancomycin and Cefepime (2) HTN (hypertension) Qualifiers: Hypertension type: essential hypertension Qualified Code(s): I10 - Essential (primary) hypertension Is this a current diagnosis for this admission?: Yes Plan: History of HTN Resume home medications (3) Schizoaffective disorder, bipolar type Is this a current diagnosis for this admission?: Yes Plan: History of Schizoaffective disorder Resume home medications - Time Time Spent with patient: 15-24 minutes Medications reviewed and adjusted accordingly: Yes Anticipated discharge: Home - Inpatient Certification Based on my medical assessment, after consideration of the patient's comorbidities, presenting symptoms, or acuity I expect that the services needed warrant INPATIENT care.: Yes I certify that my determination is in accordance with my understanding of Medicare's requirements for reasonable and necessary INPATIENT services [42 CFR 412.3e].: Yes Medical Necessity: Risk of Complication if Not Cared For in Hospital - Plan Summary Plan Summary: STILL AWAITING ARTERIAL DOPPLER
[2018-06-07] MEDS: CEFEPIME 2 GM/D5W RTU 2 GM/50 ML RTUPB IV SCH ×2 (01:23→13:09)
[2018-06-07] MEDS: SILVER SULFADIAZINE 1% CREAM 400 GM TP SCH ×2 (01:29→13:11)
[2018-06-07] MEDS: MORPHINE SULFATE 10 MG/ML INJ IV PRN ×3 (01:34→18:03)
[2018-06-07] MEDS: VANCOMYCIN HCL 1,250 MG in DEXTROSE 5%-WATER 250 ML IV SCH ×3 (03:24→20:11)
[2018-06-07 04:54] LABS: HEMATOCRIT 33.6 % (36.0-47.0); HEMOGLOBIN 11.3 g/dL (12.0-15.5); MEAN CORPUSCULAR HEMOGLOBIN 29.4 pg (27.0-33.4); MEAN CORPUSCULAR HGB CONC 33.7 g/dL (32.0-36.0); MEAN CORPUSCULAR VOLUME 87 fl (80-97); PLATELET COUNT 268 10^3/uL (150-450); RED BLOOD COUNT 3.86 10^6/uL (3.72-5.28); RED CELL DISTRIBUTION WIDTH 14.2 % (11.5-14.0); WHITE BLOOD COUNT 9.1 10^3/uL (4.0-10.5)
[2018-06-07 05:29] LABS: ALANINE AMINOTRANSFERASE 19 U/L (9-52); ALBUMIN 3.5 g/dL (3.5-5.0); ALKALINE PHOSPHATASE 58 U/L (38-126); ANION GAP 12 (5-19); ASPARTATE AMINO TRANSFERASE 12 U/L (14-36); BILIRUBIN,DIRECT 0.2 mg/dL (0.0-0.4); BILIRUBIN,TOTAL 0.2 mg/dL (0.2-1.3); BLOOD UREA NITROGEN 11 mg/dL (7-20); CALCIUM 9.3 mg/dL (8.4-10.2); CARBON DIOXIDE 27 mmol/L (22-30); CHLORIDE 104 mmol/L (98-107); GLUCOSE 85 mg/dL (75-110); POTASSIUM 4.3 mmol/L (3.6-5.0); SODIUM 143.3 mmol/L (137-145); TOTAL PROTEIN 7.3 g/dL (6.3-8.2)
[2018-06-07] MEDS: ENOXAPARIN SODIUM INJ 30 MG/0.3 ML DISP.SYRIN SUBCUT SCH (13:12)
--- NOTE | 2018-06-07 18:52 | PDOC PROGRESS REPORT ---
Subjective Progress Note for:: 06/07/18 Subjective:: 58 y.o. F with PMH HTN and schizoaffective disorder admitted to [facility] for cellulitis of the RLE. Patient is seen this morning on rounds, she is resting comfortably in bed. The patient is awake, alert and oriented 3. She is able to answer all questions appropriately. She appears to be in good spirits. She denies pain or parasthesia to her RLE. The patient denies fever, chills, nausea, vomiting or diarrhea. Her edema has decreased in the R ankle, only trace edema present at this time. +1 pitting edema to her R foot. Looking back through old hospital records, the patient has previously been treated with Keflex, Levaqiun, and Clindamycin. Continue current treatment plan, awaiting arterial doppler. Reason For Visit: CELLULITIS Physical Exam Vital Signs: Temp Pulse Resp BP Pulse Ox 98.1 F 67 18 147/74 H 100 06/07/18 15:06 06/07/18 15:06 06/07/18 15:06 06/07/18 15:06 06/07/18 15:06 Intake & Output 06/06/18 06/07/18 06/08/18 06:59 06:59 06:59 Intake Total 1412 1762 1270 Balance 1412 1762 1270 Weight 93.8 kg 93.2 kg General appearance: PRESENT: obese Eye exam: PRESENT: conjunctiva pink, PERRLA Teeth exam: PRESENT: poor dentation Neck exam: PRESENT: full ROM Respiratory exam: PRESENT: clear to auscultation julio cesar, symmetrical, unlabored Cardiovascular exam: PRESENT: +S1, +S2 Pulses: PRESENT: normal radial pulses, normal dorsalis pedis pul Vascular exam: PRESENT: normal capillary refill GI/Abdominal exam: PRESENT: normal bowel sounds, soft. ABSENT: tenderness Rectal exam: PRESENT: deferred Extremities exam: PRESENT: full ROM Musculoskeletal exam: PRESENT: ambulatory, full ROM Neurological exam: PRESENT: alert, awake, oriented to person, oriented to place , oriented to time, oriented to situation Psychiatric exam: PRESENT: unusual affect, other - schizoaffective disorder Skin exam: PRESENT: dry, intact, normal color Results Laboratory Results: 06/07/18 03:59 06/07/18 03:59 06/07/18 06/07/18 03:59 03:59 WBC 9.1 RBC 3.86 Hgb 11.3 L Hct 33.6 L MCV 87 MCH 29.4 MCHC 33.7 RDW 14.2 H Plt Count 268 Sodium 143.3 Potassium 4.3 Chloride 104 Carbon Dioxide 27 Anion Gap 12 BUN 11 Creatinine 0.60 Est GFR ( Amer) > 60 Est GFR (Non-Af Amer) > 60 Glucose 85 Calcium 9.3 Total Bilirubin 0.2 AST 12 L ALT 19 Alkaline Phosphatase 58 Total Protein 7.3 Albumin 3.5 Impressions: Venous Doppler Study 06/04/18 12:41 IMPRESSION: NO EVIDENCE DVT OR SVT IN THE RIGHT LEG. Foot X-Ray 06/04/18 14:31 IMPRESSION: DIFFUSE SOFT TISSUE SWELLING. NO SIGNIFICANT BONY FINDINGS. Status: Imported from PACS Assessment & Plan - Diagnosis (1) Cellulitis of right foot Is this a current diagnosis for this admission?: Yes Plan: Recurrent cellulitis of the R foot Erythema and edema to R foot and ankle Venous doppler (-) negative for DVT Awaiting arterial doppler of RLE Afebrile and no leukocytosis History of pseudomonas and MRSA in R foot wound Continue Vancomycin and Cefepime Blood cultures NO GROWTH No open wound or drainage available for culture (2) HTN (hypertension) Qualifiers: Hypertension type: essential hypertension Qualified Code(s): I10 - Essential (primary) hypertension Is this a current diagnosis for this admission?: Yes Plan: History of HTN Resume home medications (3) Schizoaffective disorder, bipolar type Is this a current diagnosis for this admission?: Yes Plan: History of Schizoaffective disorder Resume home medications - Time Time Spent with patient: 15-24 minutes Medications reviewed and adjusted accordingly: Yes Anticipated discharge: SNF - Inpatient Certification Based on my medical assessment, after consideration of the patient's comorbidities, presenting symptoms, or acuity I expect that the services needed warrant INPATIENT care.: Yes I certify that my determination is in accordance with my understanding of Medicare's requirements for reasonable and necessary INPATIENT services [42 CFR 412.3e].: Yes Medical Necessity: Need for IV Antibiotics - Plan Summary Plan Summary: PLAN FOR ARTERIAL DOPPLER TOMORROW. BARRING ANY COMPLICATIONS, PLAN TO D/C BACK TO SNF.
[2018-06-08] MEDS: CEFEPIME 2 GM/D5W RTU 2 GM/50 ML RTUPB IV SCH ×3 (01:59→22:21)
[2018-06-08] MEDS: SILVER SULFADIAZINE 1% CREAM 400 GM TP SCH ×3 (02:03→22:24)
[2018-06-08] MEDS: VANCOMYCIN HCL 1,250 MG in DEXTROSE 5%-WATER 250 ML IV SCH ×2 (07:47→20:02)
[2018-06-08] MEDS: ENOXAPARIN SODIUM INJ 30 MG/0.3 ML DISP.SYRIN SUBCUT SCH (10:00)
--- NOTE | 2018-06-08 16:57 | XCELERA REPORT ---
[address] [address] Lower Extremity Arterial Evaluation Name: JACK DILLARD Age: 58 yrs Gender: Female : 1960 Patient Status: Inpatient Patient Location: [address] [place], [place] [address] Study Date: 06/08/2018 11:33 AM Procedure: A color flow and duplex scan of the lower extremity arteries was performed on the right with velocity and waveform anaylsis. Reason For Study: RLE SWELLING Ordering Physician: PEGGY AGEE Performed By: Adrián Castro Measurements and Calculations Right Left RECEIPT AND REPORT CLERK PSV 113.1 cm/sec Prox PFA PSV -79.6 cm/sec Prox SFA PSV 98.2 cm/sec Mid SFA PSV -107.1 cm/sec Dist SFA PSV -98.7 cm/sec Prox Pop A PSV 86.9 cm/sec Dist ARLETTE PSV 39.9 cm/sec Dist PROMPT CARE RN PSV 61.9 cm/sec Andrew Pedis PSV 37.0 -29.9 cm/sec Right Side Arterial Evaluation Normal velocity and triphasic waveforms noted from the Common Femoral artery to the infrageniculate vessels. 0% stenosis. Ankle Brachial index not done. Interpretation Summary No hemodynamically significant lesions in the right lower extremity only, on duplex imaging, at rest. : PEGGY AGEE > Reji Carrillo
--- NOTE | 2018-06-08 17:11 | PDOC PROGRESS REPORT ---
Subjective Progress Note for:: 06/08/18 Subjective:: 58 y.o. F with PMH HTN and schizoaffective disorder admitted to [facility] for cellulitis of the RLE. Patient is seen this morning on rounds, she is resting comfortably in bed. The patient is awake, alert and oriented 3. She is able to answer all questions appropriately. She appears to be in good spirits. She denies pain or parasthesia to her RLE. The patient denies fever, chills, nausea, vomiting or diarrhea. Her edema has decreased in the R ankle, only trace edema present at this time. Mild swelling to her R foot. Looking back through old hospital records, the patient has previously been treated with Keflex, Levaqiun, and Clindamycin. Arterial doppler today completed, results negative Plan to send patient back to SNF on PO antibiotics Reason For Visit: CELLULITIS Physical Exam Vital Signs: Temp Pulse Resp BP Pulse Ox 97.8 F 69 18 129/69 H 100 06/08/18 07:28 06/08/18 07:28 06/08/18 07:28 06/08/18 07:28 06/08/18 07:28 Intake & Output 06/07/18 06/08/18 06/09/18 06:59 06:59 06:59 Intake Total 2011 Balance 2011 1941 550 Weight 93.2 kg 93.3 kg General appearance: PRESENT: morbidly obese Eye exam: PRESENT: conjunctiva pink Mouth exam: PRESENT: neck supple, tongue midline Teeth exam: PRESENT: poor dentation Neck exam: PRESENT: full ROM Respiratory exam: PRESENT: clear to auscultation julio cesar, symmetrical, unlabored Cardiovascular exam: PRESENT: +S1, +S2 Pulses: PRESENT: normal radial pulses, normal dorsalis pedis pul Vascular exam: PRESENT: normal capillary refill GI/Abdominal exam: PRESENT: normal bowel sounds, soft. ABSENT: tenderness Rectal exam: PRESENT: deferred Extremities exam: PRESENT: pedal edema - R FOOT Musculoskeletal exam: PRESENT: ambulatory, full ROM Neurological exam: PRESENT: alert, awake, oriented to person, oriented to place , oriented to time, oriented to situation Psychiatric exam: PRESENT: unusual affect - schizo affective disorder Skin exam: PRESENT: dry, erythema - MILD ERYTHEMA TO R FOOT, intact, warm Results Laboratory Results: 06/07/18 03:59 06/07/18 03:59 Impressions: Venous Doppler Study 06/04/18 12:41 IMPRESSION: NO EVIDENCE DVT OR SVT IN THE RIGHT LEG. Foot X-Ray 06/04/18 14:31 IMPRESSION: DIFFUSE SOFT TISSUE SWELLING. NO SIGNIFICANT BONY FINDINGS. Status: Imported from PACS Assessment & Plan - Diagnosis (1) Cellulitis of right foot Is this a current diagnosis for this admission?: Yes Plan: Recurrent cellulitis of the R foot Erythema and edema to R foot and ankle Venous doppler (-) negative for DVT Arterial doppler of RLE (-) negative Afebrile and no leukocytosis History of pseudomonas and MRSA in R foot wound Continue Vancomycin and Cefepime Blood cultures NO GROWTH No open wound or drainage available for culture (2) HTN (hypertension) Qualifiers: Hypertension type: essential hypertension Qualified Code(s): I10 - Essential (primary) hypertension Is this a current diagnosis for this admission?: Yes Plan: History of HTN Resume home medications (3) Schizoaffective disorder, bipolar type Is this a current diagnosis for this admission?: Yes Plan: History of Schizoaffective disorder Resume home medications - Time Time Spent with patient: 15-24 minutes Medications reviewed and adjusted accordingly: Yes Anticipated discharge: Home Within: within 24 hours - Inpatient Certification Based on my medical assessment, after consideration of the patient's comorbidities, presenting symptoms, or acuity I expect that the services needed warrant INPATIENT care.: Yes I certify that my determination is in accordance with my understanding of Medicare's requirements for reasonable and necessary INPATIENT services [42 CFR 412.3e].: Yes Medical Necessity: Need for IV Antibiotics - Plan Summary Plan Summary: DISCHARGE BACK TO [facility] ON PO ANTIBIOTICS
[2018-06-09] MEDS: VANCOMYCIN HCL 1,250 MG in DEXTROSE 5%-WATER 250 ML IV SCH (07:38)
[2018-06-09 07:56] VITALS: BP 129/85
--- NOTE | 2018-06-09 09:11 | PDOC TRANSFER SUMMARY ---
General - Admit/Disc Date/PCP Admission Date/Primary Care Provider: 06/04/18 15:48 REMINGTON ROMAN PA-C Discharge Date: 06/09/18 - Discharge Diagnosis (1) Cellulitis of right foot Is this a current diagnosis for this admission?: Yes (2) HTN (hypertension) Is this a current diagnosis for this admission?: Yes (3) Schizoaffective disorder, bipolar type Is this a current diagnosis for this admission?: Yes - Additional Information Resuscitation Status: Full Code Discharge Diet: Regular Discharge Activity: Activity As Tolerated, Slowly Increase Activity Prescriptions: Clindamycin HCl [Cleocin HCl] 300 mg PO Q6H #28 capsule Silver Sulfadiazine [Silvadene 1% Cream 400 gm] 1 applic TP DAILY #1 jar Home Medications: Amlodipine Besylate [Norvasc 10 mg Tablet] 10 mg PO DAILY 06/04/18 Aripiprazole [Abilify 10 mg Tablet] 10 mg PO DAILY 06/04/18 Benztropine Mesylate [Benztropine Mesylate 0.5 mg Tablet] 0.5 mg PO DAILY Divalproex Sodium 500 mg PO Q12 06/04/18 Hydralazine HCl [Apresoline 50 mg Tablet] 50 mg PO Q8 06/04/18 Isosorbide Mononitrate [Imdur 60 mg Tablet.er] 60 mg PO DAILY 06/04/18 Olanzapine [Zyprexa] 20 mg PO DAILY 06/04/18 Clindamycin HCl [Cleocin HCl] 300 mg PO Q6H #28 capsule 06/09/18 Silver Sulfadiazine [Silvadene 1% Cream 400 gm] 1 applic TP DAILY #1 jar History of Present Illness Admission Date/PCP: 06/04/18 15:48 REMINGTON ROMAN PA-C History of Present Illness: Per H&P by [facility]/Dr. Perez: JACK DILLARD is a 58 year old female resident of [facility]. She presents with a 6 day history of erythema and edema to the right foot. Patient has a history of cellulitis in the RLE, previously hospitalized multiple times. Patient states that she woke up on Friday morning and noticed swelling and redness to her right foot. Over the course of the last couple days her symptoms have become progressively worse. Today, the patient is unable to ambulate on her right foot due to pain, which prompted the medical staff at [facility] to send her to the emergency department. PMH includes HTN and Schizoaffective disorder Patient presented to the emergency department with stable vital signs BP 108/67 HR 75 T 97.7 RR 20 SPO2 100%. Lab work is benign, no evidence of leukocytosis. The patient endorses pain to the right foot, states she is unable to ambulate today due to pain. The patient denies fever chills. She states that her recurrent cellulitis is the result of a wound she developed on the dorsal surface her R foot "years ago". Upon assessment, the patient's R foot is erythematous with +2 pitting edema. Mild edema also present in the right ankle , no evidence of erythema or streaking. DP and PT pulses are dopplerable, unable to palpate. Full flexion and extension of the right ankle, but patient endorses pain with movement. Admit to hospitalist service for IV antibiotic treatment of her cellulitis. Hospital Course Hospital Course: The patient was admitted with recurrent cellulitis of the right foot; on admission erythema and edema extended from the right foot to ankle. She had slight skin breakdown to the dorsal aspect of her right foot. Venous and arterial Dopplers were obtained; both benign. The patient was empirically placed on IV vancomycin and cefepime for coverage of Pseudomonas and MRSA secondary to previous culture results. Blood cultures have no growth to date; wound cultures were not obtained. The patient has remained afebrile without leukocytosis and has demonstrated clinical improvement of her recurrent cellulitis infection. She is transitioned to p.o. clindamycin at time of discharge. On morning of discharge, the patient reports that she is feeling well and has significant improvement in the edema and discomfort of her right foot. She reports that she is ready to be discharged home and has no questions or concerns at this time. She is discharged with prescriptions for Silvadene ointment; recommend once daily dressing change (removal dressing, wash foot gently with water and mild soap, rinsed thoroughly, apply Silvadene, cover with dry gauze and wrap or tape as necessary to maintain in place) and for a 7 day course of clindamycin. At time of discharge, the patient is in stable condition, maintaining oxygen saturations on room air, tolerating a regular diet, and pain-free. She is discharged to the [facility] where she is an established resident. Physical Exam Vital Signs: Temp Pulse Resp BP Pulse Ox 97.8 F 66 18 129/85 H 100 06/09/18 07:30 06/09/18 07:30 06/09/18 07:30 06/09/18 07:30 06/09/18 07:30 Intake & Output 06/08/18 06/09/18 06/10/18 06:59 06:59 06:59 Intake Total 1941 2264 Output Total 0 Balance 1941 2264 Weight 93.3 kg 91.8 kg General appearance: PRESENT: no acute distress, obese, well-developed, well- nourished Head exam: PRESENT: atraumatic, normocephalic Eye exam: PRESENT: conjunctiva pink, EOMI - Amblyopia, PERRLA. ABSENT: scleral icterus Ear exam: PRESENT: normal external ear exam Mouth exam: PRESENT: moist, tongue midline Neck exam: ABSENT: carotid bruit, JVD, lymphadenopathy, thyromegaly Respiratory exam: PRESENT: clear to auscultation julio cesar, symmetrical, unlabored. ABSENT: rales, rhonchi, wheezes Cardiovascular exam: PRESENT: RRR. ABSENT: diastolic murmur, rubs, systolic murmur Pulses: PRESENT: normal dorsalis pedis pul Vascular exam: PRESENT: normal capillary refill GI/Abdominal exam: PRESENT: normal bowel sounds, soft. ABSENT: distended, guarding, mass, organolmegaly, rebound, tenderness Rectal exam: PRESENT: deferred Extremities exam: PRESENT: full ROM, pedal edema - Tace edema LLE; +1 edema RLE extending just proximal of ankle.. ABSENT: calf tenderness, clubbing Neurological exam: PRESENT: alert, awake, oriented to person, oriented to place , oriented to time, oriented to situation, CN II-XII grossly intact. ABSENT: motor sensory deficit Psychiatric exam: PRESENT: appropriate affect, normal mood. ABSENT: homicidal ideation, suicidal ideation Skin exam: PRESENT: dry, warm, other - Slight skin break down to the dorsal aspect of right foot; dry/yellow crusts present. No erythema. Mild edema.. ABSENT: cyanosis, rash Results Laboratory Results: 06/07/18 03:59 06/07/18 03:59 Impressions: Venous Doppler Study 06/04/18 12:41 IMPRESSION: NO EVIDENCE DVT OR SVT IN THE RIGHT LEG. Foot X-Ray 06/04/18 14:31 IMPRESSION: DIFFUSE SOFT TISSUE SWELLING. NO SIGNIFICANT BONY FINDINGS. Transfer Plan - Disposition Transfer Plan: Discharge to [facility]; [facility]. - Time Spent with Patient Time spent with patient: Less than 30 Minutes Qualifiers - * PATIENT BEING DISCHARGED WITH ANY OF THE FOLLOWING DIAGNOSIS: No Plan Discharge Plan: Discharge to [facility] where the patient is an established resident. Complete course of clindamycin. Follow-up with primary care provider within 1 week. Time Spent: Less than 30 Minutes
[2018-06-09] MEDS: SILVER SULFADIAZINE 1% CREAM 400 GM TP SCH (09:31)
[2018-06-09] MEDS ORDERED: ENOXAPARIN SODIUM INJ 40 MG/0.4 ML DISP.SYRIN SUBCUT SCH (10:00)
[2018-06-09] MEDS: CEFEPIME 2 GM/D5W RTU 2 GM/50 ML RTUPB IV SCH (10:56)
== END 2018-06-09 16:17 | disposition short-term general hospital (02) | DRG 603 ==
LOC: ER 12:18 → EH 15:17 → OBSVTOIN 15:48 → 3N 18:50
PROVIDERS: ADMIT Internal Medicine; ATTEND Internal Medicine
DX: L03.115 Cellulitis of right lower limb (principal); I10 Essential (primary) hypertension; F25.0 Schizoaffective disorder, bipolar type; F17.210 Nicotine dependence, cigarettes, uncomplicated; F41.9 Anxiety disorder, unspecified; E66.9 Obesity, unspecified; Z68.34 Body mass index [BMI] 34.0-34.9, adult; Z86.19 Personal history of other infectious and parasitic diseases; Z79.899 Other long term (current) drug therapy; Z86.14 Personal history of Methicillin resistant Staphylococcus aureus infection; Z83.3 Family history of diabetes mellitus
CPT/HCPCS: 36415; 80053; 80202; 85025; 85027; 85610; 87040; 93926; 93971; J0692; J1650; J2270; J3370; J3490; J7060